=== PATIENT | female | born 1960 | race Caucasian/White ===

== ENCOUNTER 2019-09-05 08:47 | Outpatient (CLI) | payer MEDICARE, MEDICAID, SELFPAY ==
--- NOTE | 2019-09-05 08:51 | ECG_ITS ---
Measurements Intervals [place] Rate: 108 P: 132 [place]: 147 QRS: -29 QRSD: 110 T: 151 QT: 336 QTc: 451 Interpretive Statements SINUS OR ECTOPIC ATRIAL TACHYCARDIA LOW QRS VOLTAGE IN PRECORDIAL LEADS POOR R WAVE PROGRESSION, CONSIDER ANTERIOR INFARCT BORDERLINE T WAVE ABNORMALITY- INF/LAT LEADS BASELINE ARTIFACT- I, II, III, AVR, AVL, V3 ABNORMAL ECG Electronically Signed On 09-05-2019 9:48:33 FIRST [employer]OOK by David Belcher D.O.
[2019-09-05 09:22] LABS: Blood Urea Nitrogen 22 mg/dL (7-17); Calcium 9.7 mg/dL (8.4-10.2); Carbon Dioxide 29 mmol/L (22-30); Chloride 100 mmol/L (98-107); Estimated Glomerular Filt Rate > 60; Glucose 126 mg/dL (65-105); Potassium 3.6 mmol/L (3.4-5.0); Sodium 139 mmol/L (137-145)
[2019-09-05 09:40] LABS: Valproic Acid 34.7 ug/mL (50-120)
== END 2019-09-05 08:48 | disposition home or self-care (01) ==
LOC: ANHSURGERY 08:51
PROVIDERS: Anesthesiology; PCP Family Medicine; Visit Provider Orthopaedic Surgery
DX: E11.9 Type 2 diabetes mellitus without complications (principal); Z79.899 Other long term (current) drug therapy; R94.31 Abnormal electrocardiogram [ECG] [EKG]
CPT/HCPCS: 36415; 80048; 80164; 93005

== ENCOUNTER 2019-09-14 00:12 | Day surgery (SDC) | payer MEDICARE, MEDICAID, SELFPAY ==
[2019-09-01 10:19] VITALS: BMI 30.1
--- NOTE | 2019-09-08 08:21 | PM.IMHP ---
H&P: HPI History of Present Illness Chief complaint: Medial and Lateral Meniscus Tear Narrative: Knee Pain Patient was seen for left knee MRI review Involved knee: left Onset: gradual Location of pain: posterior Timing of pain: intermittent Exacerbated by: weight bearing, squatting, stairs, prolonged activity and walking up stairs Relieved by: elevation, rest and NSAIDs Associated symptoms: Reports instability and stiffness History of occupational/recreational activity with repetitive motion: No History of prior knee injury: No Chief Complaint Chief Complaint: see Reason for Visit (See HPI) Duration: weeks Severity: moderate Associated signs and symptoms: symptoms reported: (Instability, ) Exacerbating/relieving factors: relieving factors: (Elevation, Rest, ICE ) Review of Systems Review of Systems: All systems reviewed & are unremarkable except as noted in HPI and below Constitutional: Constitutional: Denies headache(s) and Denies weakness Eyes: Eyes: Denies blurry vision, Denies change in vision and Denies loss of vision ENT: Denies dizziness, Denies dry mouth, Denies headache(s) and Denies nasal congestion Cardiovascular: Cardiovascular: Denies chest pain, Denies syncope, Denies leg edema and Denies dyspnea on exertion Respiratory: Respiratory: Denies cough and Denies dyspnea on exertion Gastrointestinal: Gastrointestinal: Denies abdominal pain, Denies constipation and Denies diarrhea Genitourinary: Genitourinary: Denies urinary frequency Musculoskeletal: Musculoskeletal: Reports as per HPI and Denies numbness Integumentary/Breasts: Skin/Breast: Reports system reviewed and no additional complaints, except as docu Neurologic: Denies dizziness, Denies syncope, Denies headache(s), Denies loss of vision, Denies numbness and Denies weakness Psychiatric: Psychiatric: Reports no additional psychiatric complaints Endocrine: Endocrine: Reports no additional endocrine complaints Hematologic/Lymphatic: Hematologic/Lymphatic: Reports no additional hematologic/lymphatic complaints [facility] Past Medical History Medical History Cervical disc disease Chronic pain of left thumb Chronic thumb pain COPD (chronic obstructive pulmonary disease) Degenerative disc disease, lumbar Fibromyalgia Hyperlipidemia Hypertension Left shoulder pain Osteoporosis Restless leg syndrome Type 2 diabetes mellitus without complications Surgical History Surgical History History of carpal tunnel release RT-2011 LT-1989 History of partial hysterectomy (~1985) placenta previa History of shoulder surgery (~2007) Right shoulder bone spurs History of tubal ligation (~1984) Family History Family History Grandparent Hypertension Family history of Parkinson's disease Mother Hypertension Other Family history of arthritis Social History Social History Smoking status: Former smoker Alcohol intake: never Meds Home Medications and Allergies Home Medications Medication Instructions Recorded Confirmed Type aspirin 81 mg tablet,delayed 81 mg PO DAILY #30 tablet 05/19/19 09/01/19 Rx release budesonide-formoterol HFA 160 2 puff INHALATION BID #6 gm 05/19/19 09/01/19 Rx mcg-4.5 mcg/actuation aerosol inhaler dicyclomine 10 mg capsule 10 mg PO QID #100 cap 05/19/19 09/01/19 Rx divalproex 250 mg tablet,delayed 1,000 mg PO Q12H #120 tablet 05/19/19 09/01/19 Rx release esomeprazole magnesium 20 mg 20 mg PO DAILY #30 cap 05/19/19 09/01/19 Rx capsule,delayed release lisinopril 5 mg tablet 5 mg PO DAILY #90 tablet 05/19/19 09/01/19 Rx metformin 500 mg tablet 500 mg PO BID #180 tablet 05/19/19 09/01/19 Rx rosuvastatin 10 mg tablet 10 mg PO DAILY #90 tablet 05/19/19 09/01/19 Rx sertraline 100 mg tablet
[2019-09-14] VITALS (8 sets, daily range): BP systolic 104–122; BP diastolic 77–89; PULSE 84–97; RESP 10–20; TEMP 36.8–37.2; O2SAT 94–99
--- NOTE | 2019-09-14 11:29 | WPDHPUPDATE1 ---
History and Physical Update Update Date/Time: 09/14/19 11:29 History and Physical has been reviewed, including an updated exam of the patient. There are NO changes in the patient's condition. Risks, benefits, and alternatives have been discussed and questions answered. Patient agrees to proceed with procedure.
[2019-09-14] MEDS: CELECOXIB 200 MG CAPSULE PO (12:00)
[2019-09-14] MEDS: LACTATED RINGERS 1,000 ML 30 ML IV CONT (12:10)
[2019-09-14 12:16] LABS: Glucose Point of Care 90 (65-105)
--- NOTE | 2019-09-14 13:11 | WPDANESEPPF ---
Anes - Initial Pre Proc Eval Procedure: Operation Date: 09/14/19 13:30 Proposed Procedures p Left Knee Arthroscopy, Proceed As Indicated - Devon Marshall MD Date/Time: 09/14/19 13:11 Surgeon: Devon Marshall MD Pre Op Diagnosis: Medial and Lateral Meniscus Tear Patient Data Age: 59 Gender: F Height: 1.73 m Weight: 95.6 kg Last Vital Signs Temp 37.2 C 09/14/19 12:22 Pulse 97 09/14/19 12:22 Resp 20 09/14/19 12:22 BP 104/78 09/14/19 12:22 Pulse Ox 99 09/14/19 12:22 Allergies Allergy/AdvReac Type Severity Reaction Status Date / Time No Known Allergies Allergy Unverified 09/14/19 12:20 Home Medications Medication Instructions Recorded Confirmed Type aspirin 81 mg tablet,delayed 81 mg PO DAILY #30 tablet 05/19/19 09/14/19 Rx release budesonide-formoterol HFA 160 2 puff INHALATION BID #6 gm 05/19/19 09/14/19 Rx mcg-4.5 mcg/actuation aerosol inhaler dicyclomine 10 mg capsule 10 mg PO QID #100 cap 05/19/19 09/14/19 Rx divalproex 250 mg tablet,delayed 1,000 mg PO Q12H #120 tablet 05/19/19 09/14/19 Rx release esomeprazole magnesium 20 mg 20 mg PO DAILY #30 cap 05/19/19 09/14/19 Rx capsule,delayed release lisinopril 5 mg tablet 5 mg PO DAILY #90 tablet 05/19/19 09/14/19 Rx metformin 500 mg tablet 500 mg PO BID #180 tablet 05/19/19 09/14/19 Rx rosuvastatin 10 mg tablet 10 mg PO DAILY #90 tablet 05/19/19 09/14/19 Rx sertraline 100 mg tablet 100 mg PO DAILY #30 tablet 05/19/19 09/14/19 Rx diclofenac sodium 75 mg 75 mg PO BID #60 tablet 05/23/19 09/14/19 Rx tablet,delayed release lancets 33 gauge #100 each 05/27/19 Rx lancets 33 gauge #100 each 06/14/19 Rx blood sugar diagnostic #100 each 06/17/19 Rx blood sugar diagnostic #50 each 06/17/19 Rx blood-glucose meter #1 each 06/17/19 Rx chlorhexidine gluconate 4 % 1 applic TOPICAL ONCE #236 ml 07/26/19 09/14/19 Rx topical liquid albuterol sulfate [Ventolin HFA] 2 inhalation INHALATION Q4H PRN 09/01/19 09/14/19 History apple cider vinegar 1 cap PO TID 09/01/19 09/14/19 History cyclobenzaprine 5 - 10 mg PO TID 09/01/19 09/14/19 History gabapentin 600 mg PO TID 09/01/19 09/14/19 History melatonin 5 mg PO HS 09/01/19 09/14/19 History multivitamin 1 tablet PO DAILY 09/01/19 09/14/19 History hydrochlorothiazide 25 mg tablet 25 mg PO DAILY #90 tablet 09/12/19 09/14/19 Rx Laboratory Tests 09/14/19 12:14 POC Capillary Glucose 90 mg/dl mg/dl (65-105) Patient hx anesthesia problems: none Family hx anesthesia problems: none PMFSH Past Medical History Medical History Cervical disc disease Chronic pain of left thumb Chronic thumb pain COPD (chronic obstructive pulmonary disease) Degenerative disc disease, lumbar Fibromyalgia Hyperlipidemia Hypertension Left shoulder pain Osteoporosis Restless leg syndrome Type 2 diabetes mellitus without complications Surgical History Surgical History History of carpal tunnel release RT-2011 LT-1989 History of partial hysterectomy (~1985) placenta previa History of shoulder surgery (~2007) Right shoulder bone spurs History of tubal ligation (~1984) Family History Family History Grandparent Hypertension Family history of Parkinson's disease Mother Hypertension Other Family history of arthritis Social History Social History Smoking status: Former smoker Alcohol intake: never Anes - Eval Final PreProcedure Day of Procedure 09/14/19 13:11 Patient weight: obese Heart: regular rate and rhythm Lungs: clear to auscultation and normal air movement Airway: Mallampati scale class II Neurological: alert and oriented Last oral intake: >/= 8 hours ASA classification: III Emergent: no Anesthetic plan: proceed Anesthesia type and mon
[2019-09-14] MEDS: ceFAZolin 2 GM/D5W 50 ML 2 GM/50 ML BAG IVPB (13:57)
--- NOTE | 2019-09-14 14:51 | PM.OP ---
Procedure Note - Brief Procedure Note - Brief Date of procedure: 09/14/19 Pre-op diagnosis: Medial and Lateral Meniscus Tear Post-op diagnosis: same Procedure performed: LEFT KNEE SCOPE Anesthesia: GETA Surgeon: Devon Marshall MD Estimated blood loss (mL): 5 Complications: No immediate complications Condition: stable Disposition: PACU
[2019-09-14 15:18] LABS: Glucose Point of Care 106 (65-105)
--- NOTE | 2019-09-14 19:56 | OP_ITS ---
DATE OF PROCEDURE: 09/14/2019 PREOPERATIVE DIAGNOSIS: Left knee medial meniscus tear and lateral meniscus tear. POSTOPERATIVE DIAGNOSIS: Left knee medial meniscus tear and lateral meniscus tear. PROCEDURE: Left knee arthroscopy with partial medial meniscectomy, partial lateral meniscectomy and minor synovectomy. ANESTHESIA: General. COMPLICATIONS: None. INDICATIONS: This is a 59-year-old female, who came in the office complaining of knee pain. Eventually, she was diagnosed with a medial and lateral meniscus tear. She was indicated for left knee arthroscopy. DESCRIPTION OF PROCEDURE: The patient was taken to the operating room in stable condition and placed in the supine position and general anesthesia was induced, and then the left lower extremity was prepped and draped sterilely from the toes to the thigh. Superomedial portal was used for the outflow cannula. Inferolateral portal was used for the camera. The camera was introduced. There was an area of chondromalacia grade 2 on the patella. There was a lot of synovitis in Hoffa synovium. The medial compartment was entered. There was a small tear of the medial meniscus on the main body of the posterior horn. A medial portal was established. A biter and shaver were introduced at separate times and the medial meniscus tear was resected to a smooth base. Next, minimal chondromalacia underwent chondroplasty on the surface of the medial femoral condyle. Next, the ACL was identified and it was intact. Next, the lateral compartment was entered. There was a tear in the root of the meniscus on the most posterior part of the groove and there was a main body tear. Both of those tears were resected with a biter and a shaver and they were contoured and smooth. There was no significant chondromalacia in the lateral compartment. Next, the patellofemoral joint was entered. Chondroplasty was performed of the patella, and then synovectomy was performed in Hoffa synovium until there was no more impingement in deep flexion. The patella was tracking well without any tilt. The instruments were removed after thorough irrigation of the knee joint. The wounds were washed and approximated with 4-0 nylon suture. Sterile dressing was applied. The patient was extubated and sent to recovery. Kathryn I MT: Saul
== END 2019-09-14 17:00 | disposition home or self-care (01) ==
PROVIDERS: PCP Family Medicine; Visit Provider Orthopaedic Surgery
PROC: (CPT 29870; principal; 2019-09-14 13:30)
DX: M23.322 Other meniscus derangements, posterior horn of medial meniscus, left knee (principal); M23.362 Other meniscus derangements, other lateral meniscus, left knee; I10 Essential (primary) hypertension; E11.9 Type 2 diabetes mellitus without complications; E78.5 Hyperlipidemia, unspecified; J44.9 Chronic obstructive pulmonary disease, unspecified; M79.7 Fibromyalgia; M81.0 Age-related osteoporosis without current pathological fracture; G25.81 Restless legs syndrome; Z79.84 Long term (current) use of oral hypoglycemic drugs; Z79.82 Long term (current) use of aspirin; E66.9 Obesity, unspecified; Z68.32 Body mass index [BMI] 32.0-32.9, adult
CPT/HCPCS: 29880; 97116; 97161; A9270; J0131; J0690; J1100; J2250; J2405; J2704; J3010; J7120

== ENCOUNTER 2019-09-21 11:30 | Emergency (ER) | payer MEDICARE, MEDICAID, SELFPAY ==
--- NOTE | ~2019-09-21 | CT_ITS ---
EXAMINATION: CT abdomen pelvis wo con EXAM DATE: 09/21/2019 13:00 INDICATION: Hematuria. TECHNIQUE: Spiral CT of the abdomen and pelvis was performed without contrast. Axial, coronal and sag ittal images were reviewed. The dose-length product (DLP) for this examination was 437.24 mGy-cm. T he exposure was tailored according to patient size (auto mA exposure control), and iterative reconstr uction (ASIR) was used as additional dose reduction technique. Comparison is made to prior examinatio n from 07/27/2018. FINDINGS: There is 2 x 4 mm left inferior calyceal stone, punctate right nephrolithiasis. No hydronep hrosis. The uterus is not identified and has likely been surgically resected. The bladder is unrema rkable. The liver, spleen, adrenal glands and pancreas are unremarkable. Gallbladder is unremarkabl e. No biliary obstruction. There is no retroperitoneal or pelvic lymphadenopathy. There is mild s cattered arteriosclerotic disease. The appendix is normal. The stomach and small bowel are unremarkable. There is moderate amount of c olonic stool. No free intraperitoneal gas. The heart is normal in size. There are no pericardial or pleural effusions. The lung bases are unremarkable. There are no osteoblastic or osteolytic les ions identified. IMPRESSION: 1. Small bilateral nephrolithiasis. Reviewed, dictated and finalized at location B.
[2019-09-21 11:41] VITALS: BP 131/79; PULSE 108; RESP 17; TEMP 36.5; O2SAT 99
[2019-09-21 12:06] LABS: Add Urine Microscopic? YES; Appearance Urine Cloudy (Clear); Bacteria Urine Trace /hpf; Bilirubin Urine Negative (Negative); Blood Urine 3+ (Negative); Color Urine Yellow (Yellow); Glucose Urine UA Negative (Negative); Ketones Urine Negative (Negative); Leukocyte Esterase Ur 3+ LEU/UL (Negative); Mucus Urine Rare /lpf; Nitrate Urine Negative (Negative); Protein Urine 2+ mg/dL (Negative); RBC Urine >75 /hpf (0-2); Specific Grav Ur 1.019 (1.001-1.035); Squamous Epithelial Cell Urine Occasional /hpf (Few); WBC Urine >75 /hpf
--- NOTE | 2019-09-21 12:26 | ED.FEMALEGU ---
HPI - Female Genitourinary General Chief complaint: Urogenital-Female Stated complaint: Blood in urine Time Seen by Provider: 09/21/19 11:55 Source: patient Mode of arrival: ambulatory Limitations: no limitations History of Present Illness HPI Narrative: Pt is a 59 y/o male who presents to the ED with c/o hematuria that started this morning. She reports associated dysuria, DENISE flank pain, and nausea. She has a H/O kidney stones and states that her Sx feel similar to her last kidney stone. Pt denies vomiting, diarrhea, constipation, fever, or chills. She denies any foreign travel. MD elicited complaint: dysuria and other (hematuria) Pertinent past history: other (kidney stones) Onset (ago): day(s) (this morning) Consistency: constant Urinary symptoms: Dysuria and Hematuria Associated symptoms: other (DENISE flank pain) Related Data Home Medications Medication Instructions Recorded Confirmed albuterol sulfate [Ventolin HFA] 2 inhalation INHALATION Q4H PRN 09/01/19 09/14/19 apple cider vinegar 1 cap PO TID 09/01/19 09/14/19 cyclobenzaprine 5 - 10 mg PO TID 09/01/19 09/14/19 gabapentin 600 mg PO TID 09/01/19 09/14/19 melatonin 5 mg PO HS 09/01/19 09/14/19 multivitamin 1 tablet PO DAILY 09/01/19 09/14/19 Allergies Allergy/AdvReac Type Severity Reaction Status Date / Time No Known Allergies Allergy Verified 09/21/19 11:45 Review of Systems Review of Systems: All systems reviewed & are unremarkable except as noted in HPI and below Constitutional: Constitutional: Denies chills and Denies fever(s) Gastrointestinal: Gastrointestinal: Denies constipation, Denies diarrhea, Reports nausea and Denies vomiting Genitourinary: Genitourinary: Reports hematuria, Reports dysuria and Reports flank pain (DENISE) [facility] Past Medical History Medical History (Updated 09/21/19 @ 13:08 by Carlo Grimes MD) Cervical disc disease Chronic pain of left thumb Chronic thumb pain COPD (chronic obstructive pulmonary disease) Degenerative disc disease, lumbar Fibromyalgia Hyperlipidemia Hypertension Kidney stones Left shoulder pain Osteoporosis Restless leg syndrome Type 2 diabetes mellitus without complications Surgical History Surgical History History of carpal tunnel release RT-2011 LT-1989 History of partial hysterectomy (~1985) placenta previa History of shoulder surgery (~2007) Right shoulder bone spurs History of tubal ligation (~1984) Social History Social History Smoking status: Former smoker Alcohol intake: never Gender identity (if verbalized by the patient): Female Exam Narrative: Exam Narrative: General appearance: Well-developed, well-nourished Skin: Normal color Head: Normocephalic, nontraumatic Eyes: Clear conjunctiva ENT: Oropharynx normal, ears normal, nose normal Neck: Supple, nontender Chest and respiratory: Airway patent, no respiratory distress, no accessory muscle use Heart: Regular rate/rhythm Abdomen: Soft, nontender, no organomegaly, quiet bowel sounds Vascular: Normal peripheral pulses, normal capillary refill. Musculoskeletal: Normal range of motion, diffuse tenderness across the lower back bilaterally. No bruises or swelling Neurologic: Alert and oriented ?3, [employer] is normal as tested, no gross motor deficit Course Course Emergency Course: Stable Vital Signs Vital signs: Vital Signs Temperature 36.5 C 09/21/19 11:41 Pulse Rate 108 H 09/21/19 11:41 Respiratory Rate 17 09/21/19 11:41 Blood Pressure 131/79 09/21/19 11:41 Pulse Oximetry 99 09/21/19 11:41 Temperature 36.5 C 09/21/19 11:41
[2019-09-21 13:26] VITALS: BP 109/85; PULSE 114; RESP 17; O2SAT 100
== END 2019-09-21 13:28 | disposition home or self-care (01) ==
PROVIDERS: Emergency Medicine; Emergency Provider Emergency Medicine; PCP Family Medicine
DX: N30.01 Acute cystitis with hematuria (principal); J44.9 Chronic obstructive pulmonary disease, unspecified; M79.7 Fibromyalgia; E78.5 Hyperlipidemia, unspecified; I10 Essential (primary) hypertension; Z87.442 Personal history of urinary calculi; E11.9 Type 2 diabetes mellitus without complications; G25.81 Restless legs syndrome
CPT/HCPCS: 74176; 81001; 87077; 87086; 87088; 87186; 99284

== ENCOUNTER 2020-02-12 09:24 | Outpatient (CLI) | payer MEDICARE, MEDICAID, SELFPAY ==
--- NOTE | ~2020-02-12 | MR_ITS ---
EXAMINATION: MR knee RT wo con DATE: 02/12/2020 10:15 INDICATION: Right knee pain TECHNIQUE: Magnetic resonance imaging (MRI) of the right knee was performed without intravenous contr ast. Sequences included coronal PD-weighted FSE, coronal PD-weighted FS FSE, sagittal T2-weighted FS E, sagittal PD-weighted FS FSE and axial PD weighted fat saturated FSE. COMPARISON: None. FINDINGS: Medial compartment: Medial meniscus is normal. Articular cartilage is normal. Lateral compartment: Complex tear at the posterior horn of the lateral meniscus which appears to spare the portion of the meniscus contiguous with the meniscal femoral ligament of Eduardo. A longitudinal horizontal tear pl ane extending from near the free edge to the periphery of the more anterior body and anterior horn of the lateral meniscus. Minimal subarticular edema underlying a region of deep chondral fissuring alfredito g the posterior third of the lateral tibial plateau. Cartilage along the weightbearing lateral femora l condyle appears relatively preserved. Patellofemoral compartment: Deep chondral fissuring without degenerative subchondral changes at the medial patellar facet and med ial side of the lateral facet. Additional small region of chondral ulceration and deep fissuring with out degenerative subchondral changes along the inferior aspect of the medial trochlea. Ligaments and tendons: Anterior and posterior cruciate ligaments are normal. The medial collateral ligament and fibular niko ateral ligament complex are normal. The extensor mechanism is normal. The visualized medial and later al hamstring tendons as well as the iliotibial band are normal. Fluid: Small right knee joint effusion at the suprapatellar pouch. No loose osteochondral bodies identified. Moderate-sized Pang's cyst. Osseous/other: Normal marrow signal. No fracture or pathologic marrow replacing process. IMPRESSION: 1. Complex lateral meniscal tear. 2. Mild osteoarthritis with small regions of moderate and high-grade grade chondromalacia in the garrison llofemoral and lateral compartments respectively. 3. Moderate-sized Pang's cyst. Reviewed, dictated and finalized at location A. IMPRESSION: 1. Complex lateral meniscal tear. 2. Mild osteoarthritis with small regions of moderate and high-grade grade spencer dromalacia in the patellofemoral and lateral compartments respectively. 3. Moderate-sized Pang's cyst.
== END 2020-02-12 09:25 | disposition home or self-care (01) ==
LOC: ANHIMG 09:26
PROVIDERS: PCP Family Medicine; Visit Provider Orthopaedic Surgery
DX: M71.21 Synovial cyst of popliteal space [Baker], right knee (principal); S83.271A Complex tear of lateral meniscus, current injury, right knee, initial encounter; X58.XXXA Exposure to other specified factors, initial encounter; M17.11 Unilateral primary osteoarthritis, right knee
CPT/HCPCS: 73721

== ENCOUNTER 2020-02-24 12:34 | Outpatient (CLI) | payer MEDICARE, MEDICAID, SELFPAY ==
[2020-02-24 12:58] LABS: Anion Gap 6 mmol/L (8-16); Blood Urea Nitrogen 17 mg/dL (7-17); Calcium 9.1 mg/dL (8.4-10.2); Carbon Dioxide 28 mmol/L (22-30); Chloride 105 mmol/L (98-107); Estimated Glomerular Filt Rate > 60; Glucose 90 mg/dL (65-105); Potassium 3.8 mmol/L (3.4-5.0); Sodium 139 mmol/L (137-145)
[2020-02-24 13:33] LABS: Valproic Acid 24.6 ug/mL (50-120)
== END 2020-02-24 12:35 | disposition home or self-care (01) ==
PROVIDERS: Anesthesiology; PCP Family Medicine; Visit Provider Orthopaedic Surgery
DX: Z01.818 Encounter for other preprocedural examination (principal); E11.9 Type 2 diabetes mellitus without complications; Z79.899 Other long term (current) drug therapy
CPT/HCPCS: 36415; 80048; 80164

== ENCOUNTER 2020-03-03 00:41 | Outpatient (CLI) | payer MEDICARE, MEDICAID, SELFPAY ==
[2020-03-03 19:29] LABS: SARS-CoV-2 RNA PCR Negative
== END 2020-03-03 00:42 | disposition home or self-care (01) ==
LOC: ANHCOVIDDT 00:42
PROVIDERS: PCP Family Medicine; Visit Provider Orthopaedic Surgery
DX: Z01.812 Encounter for preprocedural laboratory examination (principal); Z20.828 Contact with and (suspected) exposure to other viral communicable diseases
CPT/HCPCS: 87635; C9803; U0003

== ENCOUNTER 2020-04-07 01:13 | Outpatient (CLI) | payer MEDICARE, MEDICAID, SELFPAY ==
[2020-04-07 14:01] LABS: SARS-CoV-2 RNA PCR Negative
== END 2020-04-07 01:14 | disposition home or self-care (01) ==
LOC: ANHCOVIDDT 01:13
PROVIDERS: PCP Family Medicine; Visit Provider Orthopaedic Surgery
DX: Z01.812 Encounter for preprocedural laboratory examination (principal); Z20.828 Contact with and (suspected) exposure to other viral communicable diseases
CPT/HCPCS: 87635; C9803; U0003

== ENCOUNTER 2020-04-10 01:40 | Day surgery (SDC) | payer MEDICARE, MEDICAID, SELFPAY ==
[2020-02-21 09:00] VITALS: BMI 28.5
--- NOTE | 2020-03-05 08:45 | WPDANESEPPF ---
Anes - Initial Pre Proc Eval Procedure: Operation Date: 03/06/20 13:30 Proposed Procedures p Right Knee Arthroscopy - Devon Marshall MD Date/Time: 03/05/20 08:45 Surgeon: Devon Marshall MD Pre Op Diagnosis: Right Knee Lateral Meniscus Tear Patient Data Age: 59 Gender: F Height: 1.73 m Weight: 85.28 kg Allergies Allergy/AdvReac Type Severity Reaction Status Date / Time No Known Allergies Allergy Verified 02/21/20 09:01 Home Medications Medication Instructions Recorded Confirmed Type budesonide-formoterol HFA 160 2 puff INHALATION BID #6 gm 05/19/19 02/21/20 Rx mcg-4.5 mcg/actuation aerosol inhaler esomeprazole magnesium 20 mg 20 mg PO DAILY #30 cap 05/19/19 02/21/20 Rx capsule,delayed release lancets 33 gauge #100 each 06/14/19 02/16/20 Rx blood sugar diagnostic #50 each 06/17/19 02/16/20 Rx blood-glucose meter #1 each 06/17/19 02/16/20 Rx apple cider vinegar 1 cap PO TID 09/01/19 02/21/20 History melatonin 5 mg PO HS 09/01/19 02/21/20 History multivitamin 1 tablet PO DAILY 09/01/19 02/21/20 History diclofenac sodium 75 mg 75 mg PO BID PRN #60 tablet 11/16/19 02/21/20 Rx tablet,delayed release sertraline 100 mg tablet 100 mg PO DAILY #30 tablet 12/21/19 02/21/20 Rx blood sugar diagnostic #100 each 02/02/20 02/16/20 Rx divalproex 250 mg tablet,delayed 500 mg PO Q12H #120 tablet 02/02/20 02/21/20 Rx release metformin 500 mg tablet 500 mg PO BID #180 tablet 02/02/20 02/21/20 Rx rosuvastatin 10 mg tablet 10 mg PO DAILY #90 tablet 02/02/20 02/21/20 Rx albuterol sulfate 90 mcg/actuation 2 inhalation INHALATION Q4H PRN 02/06/20 02/21/20 Rx aerosol inhaler #8.5 gm cyclobenzaprine 10 mg tablet 5 - 10 mg PO TID #90 tablet 02/20/20 02/21/20 Rx Linzess 1 tablet PO DAILY 02/21/20 02/21/20 History chlorhexidine gluconate 4 % 1 applic TOPICAL ONCE #237 ml 02/21/20 Rx topical liquid dicyclomine 10 mg PO TID 02/21/20 02/21/20 History hydrochlorothiazide 25 mg PO DAILY 02/21/20 02/21/20 History lisinopril 5 mg PO DAILY 02/21/20 02/21/20 History gabapentin 300 mg capsule 600 mg PO TID #270 cap 03/20/20 Rx Patient hx anesthesia problems: none Family hx anesthesia problems: none PMFSH Social History Social History Smoking packs per day: 2 Smoking cigarettes per day: 40.0 Years smoked: 35 Smoking pack-years: 70.00 Smoking status: Current every day smoker Additional smoking assessment comments: NOW SMOKING 0.5PPD- HAD QUIT IN 07/2018 AND STARTED AGAIN AT 0.5PPD Alcohol intake: never Substance use: current Substance use type: marijuana Other substance usage details: MEDICAL MARIJUANA Gender identity (if verbalized by the patient): Female Spiritual care concerns: No Anes - Eval Final PreProcedure Day of Procedure 03/05/20 08:45 Patient weight: overweight Heart: regular rate and rhythm Lungs: clear to auscultation and normal air movement Airway: Mallampati scale class II Neurological: alert and oriented Last oral intake: >/= 8 hours ASA classification: III Emergent: no Anesthetic plan: proceed Anesthesia type and monitoring: general LMA and standard monitoring Informed Consent: The patient's anesthetic plan and its attendant risks and benefits were discussed with the patient/family/POA. Questions were solicited and answers provided to the satisfaction of the patient/family/POA.
--- NOTE | 2020-03-06 07:24 | WPDHPUPDATE1 ---
History and Physical Update Update Date/Time: 03/06/20 07:24 History and Physical has been reviewed, including an updated exam of the patient. There are NO changes in the patient's condition. Risks, benefits, and alternatives have been discussed and questions answered. Patient agrees to proceed with procedure.
--- NOTE | 2020-03-06 12:06 | SUR.PREOP ---
1145: CALLED PT. SHE WAS SUPPOSED TO ARRIVE AT 1130. SHE IS AT HOME. DID NOT REALIZE TODAY WAS SURGERY. SHE HAD A MUFFIN AND COFFEE AND SIPS OF PEPSI AT 0800. SPOKE TO DR JIN. AND DR BURNHAM. SURGERY CANCELLED. TO BE RESCHEDULED. PT AWARE.
[2020-03-28 14:00] VITALS: BMI 28.5
--- NOTE | 2020-04-05 08:44 | PM.IMHP ---
H&P: HPI History of Present Illness Chief complaint: Right Knee Lateral Meniscus Tear Narrative: Knee Pain Pt presents with Right knee pain. She states she was working in her yard in approx October 2019 and heard a pop . MRI done 02/12/20. Hx LT knee arthroscopy (09/14/19) Involved knee: right Onset: gradual Location of pain: medial, lateral, anterior, inferior and distal Character: stabbing and dull ache Timing of pain: intermittent Exacerbated by: kneeling, squatting and stairs Relieved by: ice and rest Associated symptoms: Reports popping, giving way and stiffness History of occupational/recreational activity with repetitive motion: No History of prior knee injury: No Review of Systems Review of Systems: All systems reviewed & are unremarkable except as noted in HPI and below Constitutional: Constitutional: Denies headache(s) and Denies weakness Eyes: Eyes: Denies blurry vision, Denies change in vision and Denies loss of vision ENT: Denies dizziness, Denies dry mouth, Denies headache(s) and Denies nasal congestion Cardiovascular: Cardiovascular: Denies chest pain, Denies syncope, Denies leg edema and Denies dyspnea on exertion Respiratory: Respiratory: Denies cough and Denies dyspnea on exertion Gastrointestinal: Gastrointestinal: Denies abdominal pain, Denies constipation and Denies diarrhea Genitourinary: Genitourinary: Denies urinary frequency Musculoskeletal: Musculoskeletal: Reports as per HPI and Denies numbness Integumentary/Breasts: Skin/Breast: Reports system reviewed and no additional complaints, except as docu Neurologic: Denies dizziness, Denies syncope, Denies headache(s), Denies loss of vision, Denies numbness and Denies weakness Psychiatric: Psychiatric: Reports no additional psychiatric complaints Endocrine: Endocrine: Reports no additional endocrine complaints Hematologic/Lymphatic: Hematologic/Lymphatic: Reports no additional hematologic/lymphatic complaints [facility] Social History Social History Smoking packs per day: 2 Smoking cigarettes per day: 40.0 Years smoked: 35 Smoking pack-years: 70.00 Smoking status: Current every day smoker Additional smoking assessment comments: NOW SMOKING 0.5PPD- HAD QUIT IN 07/2018 AND STARTED AGAIN AT 0.5PPD Alcohol intake: never Substance use: current Substance use type: marijuana Other substance usage details: MED[employer] MARIJUANA Gender identity (if verbalized by the patient): Female Spiritual care concerns: No Meds Home Medications and Allergies Home Medications Medication Instructions Recorded Confirmed Type budesonide-formoterol HFA 160 2 puff INHALATION BID #6 gm 05/19/19 03/28/20 Rx mcg-4.5 mcg/actuation aerosol inhaler esomeprazole magnesium 20 mg 20 mg PO DAILY #30 cap 05/19/19 03/28/20 Rx capsule,delayed release lancets 33 gauge #100 each 06/14/19 03/28/20 Rx blood sugar diagnostic #50 each 06/17/19 03/28/20 Rx blood-glucose meter #1 each 06/17/19 03/28/20 Rx apple cider vinegar 1 cap PO TID 09/01/19 03/28/20 History melatonin 5 mg PO HS 09/01/19 03/28/20 History multivitamin 1 tablet PO DAILY 09/01/19 03/28/20 History diclofenac sodium 75 mg 75 mg PO BID PRN #60 tablet 11/16/19 03/28/20 Rx tablet,delayed release sertraline 100 mg tablet 100 mg PO DAILY #30 tablet 12/21/19 03/28/20 Rx blood sugar diagnostic #100 each 02/02/20 03/28/20 Rx divalproex 250 mg tablet,delayed 500 mg PO Q12H #120 tablet 02/02/20 03/28/20 Rx release metformin 500 mg tablet 500 mg PO BID #180 tablet 02/02/20 03/28/20 Rx rosuvastatin 10 mg tablet 10 mg PO DAILY #90 tablet 02/02/20 03/28/20 Rx albuterol sulfate 90 mcg/actuation 2 inhalation INHALATION Q4H PRN 02/06/20 03/28/20 Rx aerosol inhaler #8.5 gm cyclobenzaprine 10 mg tablet 5 - 10 mg PO TID #90 tablet 02/20/20 03/28/20 Rx Linzess 1 tablet PO DAILY 02/21/20 03/28/20 History chlorhexidine gluconate 4 % 1 applic TOPICAL ONCE #237
[2020-04-10] VITALS (9 sets, daily range): BP systolic 100–136; BP diastolic 70–91; PULSE 83–103; RESP 6–16; TEMP 36.4–36.6; O2SAT 94–100
--- NOTE | 2020-04-10 07:28 | WPDHPUPDATE1 ---
History and Physical Update Update Date/Time: 04/10/20 07:28 History and Physical has been reviewed, including an updated exam of the patient. There are NO changes in the patient's condition. Risks, benefits, and alternatives have been discussed and questions answered. Patient agrees to proceed with procedure.
[2020-04-10] MEDS: ACETAMINOPHEN 500 MG TABLET 1000 MG PO (08:51)
[2020-04-10] MEDS: CELECOXIB 200 MG CAPSULE PO (08:51)
[2020-04-10 08:52] LABS: Glucose Point of Care 98 (65-105)
[2020-04-10] MEDS: LACTATED RINGERS 1,000 ML 30 ML IV CONT ×2 (08:52→10:31)
--- NOTE | 2020-04-10 09:05 | WPDANESEPPF ---
Anes - Initial Pre Proc Eval Procedure: Operation Date: 04/10/20 10:00 Proposed Procedures p Right Knee Arthroscopy - Devon Marshall MD Date/Time: 04/10/20 09:05 Surgeon: Devon Marshall MD Pre Op Diagnosis: Right Knee Lateral Meniscus Tear Patient Data Age: 59 Gender: F Height: 5 ft 8 in Weight: 84.9 kg Last Vital Signs Temp 36.4 C L 04/10/20 08:16 Pulse 103 H 04/10/20 08:16 Resp 16 04/10/20 08:16 BP 136/91 H 04/10/20 08:16 Pulse Ox 98 04/10/20 08:16 Allergies Allergy/AdvReac Type Severity Reaction Status Date / Time No Known Allergies Allergy Verified 04/10/20 08:16 Home Medications Medication Instructions Recorded Confirmed Type budesonide-formoterol HFA 160 2 puff INHALATION BID #6 gm 05/19/19 03/28/20 Rx mcg-4.5 mcg/actuation aerosol inhaler esomeprazole magnesium 20 mg 20 mg PO DAILY #30 cap 05/19/19 03/28/20 Rx capsule,delayed release lancets 33 gauge #100 each 06/14/19 03/28/20 Rx blood sugar diagnostic #50 each 06/17/19 03/28/20 Rx blood-glucose meter #1 each 06/17/19 03/28/20 Rx apple cider vinegar 1 cap PO TID 09/01/19 03/28/20 History melatonin 5 mg PO HS 09/01/19 03/28/20 History multivitamin 1 tablet PO DAILY 09/01/19 03/28/20 History diclofenac sodium 75 mg 75 mg PO BID PRN #60 tablet 11/16/19 03/28/20 Rx tablet,delayed release sertraline 100 mg tablet 100 mg PO DAILY #30 tablet 12/21/19 03/28/20 Rx blood sugar diagnostic #100 each 02/02/20 03/28/20 Rx divalproex 250 mg tablet,delayed 500 mg PO Q12H #120 tablet 02/02/20 03/28/20 Rx release metformin 500 mg tablet 500 mg PO BID #180 tablet 02/02/20 03/28/20 Rx rosuvastatin 10 mg tablet 10 mg PO DAILY #90 tablet 02/02/20 03/28/20 Rx albuterol sulfate 90 mcg/actuation 2 inhalation INHALATION Q4H PRN 02/06/20 03/28/20 Rx aerosol inhaler #8.5 gm cyclobenzaprine 10 mg tablet 5 - 10 mg PO TID #90 tablet 02/20/20 03/28/20 Rx Linzess 1 tablet PO DAILY 02/21/20 03/28/20 History chlorhexidine gluconate 4 % 1 applic TOPICAL ONCE #237 ml 02/21/20 03/28/20 Rx topical liquid dicyclomine 10 mg PO TID 02/21/20 03/28/20 History hydrochlorothiazide 25 mg PO DAILY 02/21/20 03/28/20 History lisinopril 5 mg PO DAILY 02/21/20 03/28/20 History gabapentin 300 mg capsule 600 mg PO TID #270 cap 03/20/20 03/28/20 Rx Laboratory Tests 04/10/20 08:50 POC Capillary Glucose 98 mg/dl mg/dl (65-105) Patient hx anesthesia problems: none Family hx anesthesia problems: none PMFSH Past Medical History Medical History Abdominal pain Arthritis Cervical disc disease Chronic pain of left thumb Chronic thumb pain Colon polyp Constipation COPD (chronic obstructive pulmonary disease) Degenerative disc disease, lumbar Depression Fibromyalgia High cholesterol Hyperlipidemia Hypertension Irritable bowel syndrome with constipation Kidney stones Left shoulder pain Nausea Osteoporosis Restless leg syndrome Stomach pain Type 2 diabetes mellitus without complications Last A1C provided 02/02/20: 5 Weight loss Surgical History Surgical History History of carpal tunnel release RT-2011 LT-1989 History of partial hysterectomy (~1985) placenta previa History of shoulder surgery (~2007) Right shoulder bone spurs History of tubal ligation (~1984) Family History Family History Grandparent Hypertension Family history of Parkinson's disease Mother Hypertension Other Family history of arthritis Social History Social History Smoking packs per day: 2 Smoking cigarettes per day: 40.0 Years smoked: 35 Smoking pack-years: 70.00 Smoking status: Current every day smoker Additional smoking assessment comments: NOW SMOKING 0.5PPD- HAD QUIT IN 07/2018 AND STARTED AGAIN AT 0.5PPD Alcohol in
--- NOTE | 2020-04-10 09:30 | SUR.PREOP ---
Patient declining crutch training for right knee arthroscopy. Patient using walker from home post operatively. Rupal has previous experience with walker training from left knee arthroscopy. Offered for physical therapy to see patient for walker training and patient declined.
[2020-04-10] MEDS: ceFAZolin 2 GM/D5W 50 ML 2 GM/50 ML BAG IVPB (09:45)
--- NOTE | 2020-04-10 10:28 | P.OP_ITS ---
Procedure Note - Detailed Date of procedure: 04/10/20 Pre-op diagnosis: Right Knee Lateral Meniscus Tear Post-op diagnosis: same Procedure performed: RIGHT KNEE SCOPE WITH PARTIAL LATERAL MENISCECTOMY AND MAJOR SYNOVECTOMY Description of procedure: PATIENT WAS TAKEN TO THE OR. RIGHT LEG WAS PREPPED AND DRAPED STERILE. TROCARS WERE PLACED IN THE USUAL FASHION. CAMERA WAS INTRODUCED. THERE WAS MINIMAL CHONDROMALACIA TO THE PATELLA FEMORAL JOINT. THERE WAS SYNOVITIS IN THE PATELLO FEMORAL COMPARTMENT. THE MEDIAL COMPARTMENT SHOWED CHONDROMALACIA TO THE MED FEMORAL CONDYLE. A SHAVER WAS USED TO PREFORM A CHONDROPLASTY. THERE WAS NO MEDIAL MENISCUS TEAR. THE ACL WAS INTACT. THE LATERAL MENISCUS WAS TORN AT THE ROOT AND UNDERWENT RESECTION OF ABOUT 10 % THE LAT FEMORAL CONDYLE UNDERWENT CHONDROPLASTY. THE PATELLO FEMORAL JOINT UN DERWENT MINIMAL CHONDROPLASTY. SYNOVECTOMY WAS PREFORMED IN HOFFA'S SYNOVIUM. THE WOUNDS WERE APPROXIMATED WITH 4.0 NYLON. STERILE DRESSING WAS APPLIED. PATIENT WAS EXTUBATED. Anesthesia: GLMA Surgeon: Devon Marshall MD Estimated blood loss (mL): 5 Complications: No immediate complications Condition: stable Disposition: PACU
--- NOTE | 2020-04-10 10:53 | SUR.PHASEI ---
1040; ORAL AIRWAY REMOVED INTACT DUE TO NO TEETH AND PT TONGUE OBSTRUCTING. 30FR NASAL AIRWAY PLACED TO LT NARE WITHOUT DIFFICULTY. RESP EVEN UNLABORED. NO OBSTRUCTING
[2020-04-10 11:03] LABS: Glucose Point of Care 95 (65-105)
[2020-04-10] MEDS: HYDROmorphone HCL INJ (*CRX) 1 MG/ML SYR 0.5 MG IV PUSH ×4 (11:08→11:29)
--- NOTE | 2020-04-10 11:22 | SUR.PHASEI ---
PT GROGGY, RESTING QUIETLY . DOZES IN INTERVALS. WHEN AWAKE, STATES PAIN 9/10. DILAUDID GIVEN PRN
--- NOTE | 2020-04-10 11:31 | SUR.PHASEI ---
PT STATES SHE IS FEELING BETTER NOW. RELAXED.
--- NOTE | 2020-04-10 11:45 | SUR.PHASEI ---
PT STATES SHE IS READY TO SIT IN RECLINER AND HAVE PO FLUIDS.
[2020-04-10] MEDS: oxyCODONE HCL (*CRX) 5 MG TAB IR PO (12:37)
== END 2020-04-10 12:58 | disposition home or self-care (01) ==
PROVIDERS: PCP Family Medicine; Visit Provider Orthopaedic Surgery
PROC: (CPT 29870; principal; 2020-04-10 10:00)
DX: S83.281A Other tear of lateral meniscus, current injury, right knee, initial encounter (principal); F17.210 Nicotine dependence, cigarettes, uncomplicated; F12.90 Cannabis use, unspecified, uncomplicated; J44.9 Chronic obstructive pulmonary disease, unspecified; E11.9 Type 2 diabetes mellitus without complications; E78.5 Hyperlipidemia, unspecified; I10 Essential (primary) hypertension; M94.261 Chondromalacia, right knee; M65.861 Other synovitis and tenosynovitis, right lower leg
CPT/HCPCS: 29881; 29876; A9270; J0690; J1100; J1170; J2250; J2405; J2704; J3010; J7120

== ENCOUNTER 2020-06-25 13:52 | Outpatient (CLI) | payer MEDICARE, MEDICAID, SELFPAY ==
--- NOTE | ~2020-06-25 | CT_ITS ---
EXAMINATION: CT lung screening DATE: 06/25/2020 14:16 INDICATION: Personal history of nicotine dependence TECHNIQUE: Computed tomography (CT) of the chest was performed without intravenous contrast. The dose -length product was 165.73 mGy-cm. Automated exposure control and iterative reconstruction technique were employed. COMPARISON: CT dated 04/06/2018 FINDINGS: No thoracic lymphadenopathy. Heart size normal. No significant pleural or pericardial effus ion. Moderate emphysema. No thoracic lymphadenopathy. There are small upper lobe nodules measuring 2 mm or less no pneumothorax. No endobronchial lesions. Right middle lobe atelectasis. No focal pneumon ia. No acute osseous abnormality. No osteolytic or osteoblastic lesions. IMPRESSION: 1. Lung-RADS category 2: Benign appearance or behavior. Continue annual screening with noncontrast lo w-dose chest CT in 12 months. Reviewed, dictated and finalized at location A. ING MACHINE FEEDER IMPRESSION: 1. Lung-RADS category 2: Benign appearance or behavior. Continue annual screeni ng with noncontrast low-dose chest CT in 12 months.
== END 2020-06-25 13:53 | disposition home or self-care (01) ==
PROVIDERS: PCP Family Medicine; Visit Provider Nurse Practitioner
DX: Z12.2 Encounter for screening for malignant neoplasm of respiratory organs (principal); Z87.891 Personal history of nicotine dependence
CPT/HCPCS: G0297

== ENCOUNTER 2020-08-15 09:33 | Outpatient (CLI) | payer MEDICARE, MEDICAID, SELFPAY ==
--- NOTE | ~2020-08-15 | XR_ITS ---
EXAMINATION: XR wrist LT min 3V DATE: 08/15/2020 09:58 INDICATION: Osteoarthritis of scaphoid. Left wrist pain. TECHNIQUE: 4 views of left wrist were obtained. COMPARISON: Left hand radiographs 07/25/2019 FINDINGS: Bone alignment is normal. No fracture. There is severe osteoarthritis of first carpometacar pal joint and mild osteoarthritis of triscaphe joint. IMPRESSION: 1. Polyarticular osteoarthritis. Reviewed, dictated and finalized at location A. CONSULTANT
== END 2020-08-15 09:34 | disposition home or self-care (01) ==
PROVIDERS: PCP Nurse Practitioner; Visit Provider Plastic Surgery
DX: M19.032 Primary osteoarthritis, left wrist (principal)
CPT/HCPCS: 73110

== ENCOUNTER → 2020-09-15 01:10 | Outpatient (CLI) | payer MEDICARE, MEDICAID, SELFPAY ==
[2020-09-15 19:48] LABS: SARS-CoV-2 RNA PCR Negative
== END ==
PROVIDERS: PCP Nurse Practitioner; Visit Provider Plastic Surgery
DX: Z01.812 Encounter for preprocedural laboratory examination (principal); Z20.822 Contact with and (suspected) exposure to COVID-19
CPT/HCPCS: C9803; U0003; U0005

== ENCOUNTER 2020-09-18 11:00 | Outpatient (CLI) | payer MEDICARE, MEDICAID, SELFPAY ==
--- NOTE | 2020-09-18 11:15 | ECG_ITS ---
Measurements Intervals Alicia Rate: 92 P: 50 ID: [id number] QRS: -12 QRSD: 93 T: 44 QT: 362 QTc: 449 Interpretive Statements SINUS RHYTHM LOW QRS VOLTAGE IN PRECORDIAL LEADS BORDERLINE R WAVE PROGRESSION, ANTERIOR LEADS MINIMAL Q WAVES- HIGH LATERAL LEADS BORDERLINE ECG Electronically Signed On 09-18-2020 12:04:39 [employer]TON [employer]UF[employer] by David Belcher D.O.
[2020-09-18 11:49] LABS: Anion Gap 6 mmol/L (8-16); Blood Urea Nitrogen 20 mg/dL (7-17); Calcium 9.4 mg/dL (8.4-10.2); Carbon Dioxide 29 mmol/L (22-30); Chloride 109 mmol/L (98-107); Estimated Glomerular Filt Rate > 60; Glucose 112 mg/dL (65-105); Potassium 3.8 mmol/L (3.4-5.0); Sodium 144 mmol/L (137-145)
== END 2020-09-18 11:01 | disposition home or self-care (01) ==
LOC: ANHSURGERY 11:03
PROVIDERS: Anesthesiology; PCP Nurse Practitioner; Visit Provider Plastic Surgery
DX: Z01.818 Encounter for other preprocedural examination (principal); E11.9 Type 2 diabetes mellitus without complications; Z87.891 Personal history of nicotine dependence
CPT/HCPCS: 36415; 80048; 93005

== ENCOUNTER 2020-09-19 02:05 | Day surgery (SDC) | payer MEDICARE, MEDICAID, SELFPAY ==
[2020-09-17 12:50] VITALS: BMI 27.6
--- NOTE | 2020-09-19 07:03 | WPDANESEPP ---
Anes - Eval Pre Procedure Procedure: Operation Date: 09/19/20 07:30 Proposed Procedures p Release Left First Dorsal Compartment - Kyle Howard MD Date/Time: 09/19/20 07:03 Pre Op Diagnosis: Left First C&C Joint OA Patient Data Age: 60 Gender: F Height: 1.73 m Weight: 82.3 kg Allergies Allergy/AdvReac Type Severity Reaction Status Date / Time No Known Allergies Allergy Verified 09/17/20 12:43 Home Medications Medication Instructions Recorded Confirmed Type budesonide-formoterol HFA 160 2 puff INHALATION BID #6 gm 05/19/19 09/17/20 Rx mcg-4.5 mcg/actuation aerosol inhaler esomeprazole magnesium 20 mg 20 mg PO DAILY #30 cap 05/19/19 09/17/20 Rx capsule,delayed release lancets 33 gauge #100 each 06/14/19 06/05/20 Rx blood sugar diagnostic #50 each 06/17/19 06/05/20 Rx blood-glucose meter #1 each 06/17/19 06/05/20 Rx apple cider vinegar 1 cap PO TID 09/01/19 09/17/20 History melatonin 5 mg PO HS 09/01/19 09/17/20 History multivitamin 1 tablet PO DAILY 09/01/19 09/17/20 History blood sugar diagnostic #100 each 02/02/20 06/05/20 Rx albuterol sulfate 90 mcg/actuation 2 inhalation INHALATION Q4H PRN 02/06/20 09/17/20 Rx aerosol inhaler #8.5 gm metformin 500 mg tablet 500 mg PO BID #180 tablet 04/18/20 09/17/20 Rx rosuvastatin 10 mg tablet 10 mg PO DAILY #90 tablet 04/18/20 09/17/20 Rx gabapentin 300 mg capsule 600 mg PO TID #180 cap 05/17/20 09/17/20 Rx hydrochlorothiazide 25 mg tablet 25 mg PO DAILY #90 tablet 06/04/20 09/17/20 Rx linaclotide 72 mcg capsule 72 mcg PO DAILY #30 cap 06/04/20 09/17/20 Rx lisinopril 5 mg tablet 5 mg PO DAILY #90 tablet 06/04/20 09/17/20 Rx divalproex 250 mg tablet,delayed See Rx Instructions .ROUTE 07/17/20 09/17/20 Rx release .COMPLEX #360 tablet diclofenac sodium 75 mg See Rx Instructions .ROUTE 07/30/20 09/17/20 Rx tablet,delayed release .COMPLEX #60 tablet cyclobenzaprine 10 mg tablet See Rx Instructions .ROUTE 08/20/20 09/17/20 Rx .COMPLEX #90 tablet buspirone 5 mg tablet 5 mg PO TID PRN #90 tablet 09/03/20 09/17/20 Rx sertraline 100 mg tablet 150 mg PO DAILY #45 tablet 09/03/20 09/17/20 Rx aspirin [Aspir-81] 81 mg PO DAILY 09/17/20 09/17/20 History docusate sodium [Colace] 100 mg PO TID 09/17/20 09/17/20 History simethicone [Gas-X Extra Strength] 125 mg PO TID 09/17/20 09/17/20 History Patient hx anesthesia problems: none Family hx anesthesia problems: none PMFSH Past Medical History Medical History Arthritis Cervical disc disease Colon polyp Constipation COPD (chronic obstructive pulmonary disease) Degenerative disc disease, lumbar Depression Fibromyalgia High cholesterol Hyperlipidemia Hypertension Irritable bowel syndrome with constipation Kidney stones Left shoulder pain Nausea Osteoporosis Restless leg syndrome Stomach pain Type 2 diabetes mellitus without complications Last A1C provided 02/02/20: 5 Weight loss Surgical History Surgical History H/O arthroscopic knee surgery (~2019) History of carpal tunnel release RT-2011 LT-1989 History of partial hysterectomy (~1985) placenta previa History of shoulder surgery (~2007) Right shoulder bone spurs History of tubal ligation (~1984) Family History Family History Grandparent Hypertension Family history of Parkinson's disease Mother Hypertension Other Family history of arthritis Social History Social History Smoking packs per day: 2 Smoking cigarettes per day: 40.0 Years smoked: 35 Smoking pack-years: 70.00 Smoking status: Current every day smoker Tobacco type: cigarettes Additional smoking assessment comments: NOW SMOKING 0.5PPD- HAD QUIT IN 07/2018 AND STARTED AGAIN AT 0.5PPD Alcohol intake: never Substance use: current Substance use
--- NOTE | 2020-09-19 07:09 | WPDANESEPPF ---
Anes - Initial Pre Proc Eval Procedure: Operation Date: 09/19/20 07:30 Proposed Procedures p Release Left First Dorsal Compartment - Kyle Howard MD Date/Time: 09/19/20 07:09 Surgeon: Kyle Howard MD Pre Op Diagnosis: Left First C&C Joint OA Patient Data Age: 60 Gender: F Height: 5 ft 8 in Weight: 82.3 kg Allergies Allergy/AdvReac Type Severity Reaction Status Date / Time No Known Allergies Allergy Verified 09/17/20 12:43 Home Medications Medication Instructions Recorded Confirmed Type budesonide-formoterol HFA 160 2 puff INHALATION BID #6 gm 05/19/19 09/17/20 Rx mcg-4.5 mcg/actuation aerosol inhaler esomeprazole magnesium 20 mg 20 mg PO DAILY #30 cap 05/19/19 09/17/20 Rx capsule,delayed release lancets 33 gauge #100 each 06/14/19 06/05/20 Rx blood sugar diagnostic #50 each 06/17/19 06/05/20 Rx blood-glucose meter #1 each 06/17/19 06/05/20 Rx apple cider vinegar 1 cap PO TID 09/01/19 09/17/20 History melatonin 5 mg PO HS 09/01/19 09/17/20 History multivitamin 1 tablet PO DAILY 09/01/19 09/17/20 History blood sugar diagnostic #100 each 02/02/20 06/05/20 Rx albuterol sulfate 90 mcg/actuation 2 inhalation INHALATION Q4H PRN 02/06/20 09/17/20 Rx aerosol inhaler #8.5 gm metformin 500 mg tablet 500 mg PO BID #180 tablet 04/18/20 09/17/20 Rx rosuvastatin 10 mg tablet 10 mg PO DAILY #90 tablet 04/18/20 09/17/20 Rx gabapentin 300 mg capsule 600 mg PO TID #180 cap 05/17/20 09/17/20 Rx hydrochlorothiazide 25 mg tablet 25 mg PO DAILY #90 tablet 06/04/20 09/17/20 Rx linaclotide 72 mcg capsule 72 mcg PO DAILY #30 cap 06/04/20 09/17/20 Rx lisinopril 5 mg tablet 5 mg PO DAILY #90 tablet 06/04/20 09/17/20 Rx divalproex 250 mg tablet,delayed See Rx Instructions .ROUTE 07/17/20 09/17/20 Rx release .COMPLEX #360 tablet diclofenac sodium 75 mg See Rx Instructions .ROUTE 07/30/20 09/17/20 Rx tablet,delayed release .COMPLEX #60 tablet cyclobenzaprine 10 mg tablet See Rx Instructions .ROUTE 08/20/20 09/17/20 Rx .COMPLEX #90 tablet buspirone 5 mg tablet 5 mg PO TID PRN #90 tablet 09/03/20 09/17/20 Rx sertraline 100 mg tablet 150 mg PO DAILY #45 tablet 09/03/20 09/17/20 Rx aspirin [Aspir-81] 81 mg PO DAILY 09/17/20 09/17/20 History docusate sodium [Colace] 100 mg PO TID 09/17/20 09/17/20 History simethicone [Gas-X Extra Strength] 125 mg PO TID 09/17/20 09/17/20 History Patient hx anesthesia problems: none Family hx anesthesia problems: none PMFSH Past Medical History Medical History Arthritis Cervical disc disease Colon polyp Constipation COPD (chronic obstructive pulmonary disease) Degenerative disc disease, lumbar Depression Fibromyalgia High cholesterol Hyperlipidemia Hypertension Irritable bowel syndrome with constipation Kidney stones Left shoulder pain Nausea Osteoporosis Restless leg syndrome Stomach pain Type 2 diabetes mellitus without complications Last A1C provided 02/02/20: 5 Weight loss Surgical History Surgical History H/O arthroscopic knee surgery (~2019) History of carpal tunnel release RT-2011 LT-1989 History of partial hysterectomy (~1985) placenta previa History of shoulder surgery (~2007) Right shoulder bone spurs History of tubal ligation (~1984) Family History Family History Grandparent Hypertension Family history of Parkinson's disease Mother Hypertension Other Family history of arthritis Social History Social History Smoking packs per day: 2 Smoking cigarettes per day: 40.0 Years smoked: 35 Smoking pack-years: 70.00 Smoking status: Current every day smoker Tobacco type: cigarettes Additional smoking assessment comments: NOW SMOKING 0.5PPD- HAD QUIT IN 07/2018 AND STARTED AGAIN AT 0.5PPD Alcohol intake: n
--- NOTE | 2020-09-19 07:12 | WPDHPUPDATE1 ---
History and Physical Update Update Date/Time: 09/19/20 07:12 History and Physical has been reviewed, including an updated exam of the patient. There are NO changes in the patient's condition. Risks, benefits, and alternatives have been discussed and questions answered. Patient agrees to proceed with procedure.
[2020-09-19] MEDS: LACTATED RINGERS 1,000 ML 30 ML IV CONT (07:13)
[2020-09-19 07:20] LABS: Glucose Point of Care 93 (65-105)
[2020-09-19 07:22] VITALS: BP 126/83; PULSE 101; RESP 18; TEMP 36.4; O2SAT 98
[2020-09-19] MEDS: LIDO 1%/EPINEPHRINE 1:100,000 50 ML VIAL INFILTRATE (07:51)
--- NOTE | 2020-09-19 07:52 | PM.OP ---
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 Post-op diagnosis: same Procedure performed: Release of left first dorsal compartment. Anesthesia: MAC Surgeon: Kyle Howard MD Tourniquet time (min): 3 Drains: No Packing: No Pathology: none sent Complications: None Condition: stable Disposition: same day
[2020-09-19 08:00] VITALS: BP 114/80; PULSE 94; RESP 12; O2SAT 99
--- NOTE | 2020-09-19 08:01 | PM.PROC ---
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 The patient was taken to the operating room and placed supine on the operating table. A time-out was held and confirmed. The site was prepped and draped in usual fashion. The site was marked for incision. It was locally infiltrated with 1% lidocaine with epinephrine. The tourniquet was inflated to 250 mmHg. The small transverse incision was made over the radial styloid. Dissection was carried bluntly through the subcutaneous tissue. Care was taken to preserve cutaneous nerves. The 1st dorsal compartment was incised along its palmar edge. The compartment was opened the abductor pollicis longus and extensor pollicis brevis were identified within that the extensor pollicis brevis was not in the separate compartment. The wound was closed with intradermal 4-0 Monocryl suture. Small bandage was applied with Werner wrap. The tourniquet was released and she is discharged with instructions in wound care and follow-up. She has a prescription for hydrocodone / number 4 Surgeon: Kyle Howard MD
[2020-09-19 08:22] LABS: Glucose Point of Care 90 (65-105)
[2020-09-19 08:30] VITALS: BP 120/77; PULSE 94; RESP 14; O2SAT 96
== END 2020-09-19 08:47 | disposition home or self-care (01) ==
PROVIDERS: PCP Nurse Practitioner; Visit Provider Plastic Surgery
PROC: (CPT 25000; principal; 2020-09-19 07:30)
DX: M65.4 Radial styloid tenosynovitis [de Quervain] (principal); I10 Essential (primary) hypertension; J44.9 Chronic obstructive pulmonary disease, unspecified; E78.5 Hyperlipidemia, unspecified; K58.1 Irritable bowel syndrome with constipation; M79.7 Fibromyalgia; M81.0 Age-related osteoporosis without current pathological fracture; E11.9 Type 2 diabetes mellitus without complications; G25.81 Restless legs syndrome; F32.9 Major depressive disorder, single episode, unspecified; M51.36 Other intervertebral disc degeneration, lumbar region; M50.30 Other cervical disc degeneration, unspecified cervical region; F17.210 Nicotine dependence, cigarettes, uncomplicated; F12.90 Cannabis use, unspecified, uncomplicated; Z79.51 Long term (current) use of inhaled steroids; Z79.84 Long term (current) use of oral hypoglycemic drugs; Z79.82 Long term (current) use of aspirin
CPT/HCPCS: 25000; 82948; A9270; J2250; J2405; J2704; J3010; J7120

== ENCOUNTER 2020-11-07 11:29 | Outpatient (CLI) | payer MEDICARE, MEDICAID, SELFPAY ==
[2020-11-07 13:41] LABS: Valproic Acid 67.3 ug/mL (50-120)
== END 2020-11-07 11:30 | disposition home or self-care (01) ==
LOC: ANHSURGERY 11:33
PROVIDERS: Anesthesiology; PCP Nurse Practitioner; Visit Provider Plastic Surgery
DX: Z01.818 Encounter for other preprocedural examination (principal); Z79.899 Other long term (current) drug therapy
CPT/HCPCS: 36415; 80164

== ENCOUNTER → 2020-11-12 00:13 | Outpatient (CLI) | payer MEDICARE, MEDICAID, SELFPAY ==
[2020-11-12 19:16] LABS: SARS-CoV-2 RNA PCR Negative
== END ==
PROVIDERS: PCP Nurse Practitioner; Visit Provider Plastic Surgery
DX: Z01.812 Encounter for preprocedural laboratory examination (principal); Z20.822 Contact with and (suspected) exposure to COVID-19
CPT/HCPCS: C9803; U0003; U0005

== ENCOUNTER 2020-11-15 01:40 | Day surgery (SDC) | payer MEDICARE, MEDICAID, SELFPAY ==
[2020-11-06 13:25] VITALS: BMI 27.3
[2020-11-15] VITALS (11 sets, daily range): BP systolic 93–156; BP diastolic 60–80; PULSE 86–109; RESP 11–20; TEMP 36.6–36.8; O2SAT 92–99
--- NOTE | ~2020-11-15 | XR_ITS ---
EXAMINATION: XR surgery orthopedic DATE: 11/15/2020 09:55 INDICATION: Left thumb arthroplasty TECHNIQUE: 4 fluoroscopic images of the radial aspect of the left carpus were obtained during procedu re performed by Dr. Howard. Radiologist was not present for the imaging or procedure. The amount of fl uoroscopy time used during this procedure was 2.2 minutes. COMPARISON: 08/15/2020 FINDINGS: Images demonstrate changes of a first carpal metacarpal suspension arthroplasty with resection of the trapezium. There is expected secondary proximal migration of the base of the first metacarpal into t he resection bed where there is also an expected small amount of postoperative gas in the soft tissue s. IMPRESSION: 1. Expected appearance post trapezium resection for first carpal metacarpal suspension arthroplasty. See procedure note for further detail. Reviewed, dictated and finalized at location A. IMPRESSION: 1. Expected appearance post trapezium resection for first carpal metacarpal lazaro pension arthroplasty. See procedure note for further detail.
--- NOTE | 2020-11-15 06:50 | WPDANESEPPF ---
Anes - Initial Pre Proc Eval Procedure: Operation Date: 11/15/20 07:30 Proposed Procedures p Left Trapezium Resection Arthroplasty with Internal Brace - Kyle Howard MD Date/Time: 11/15/20 06:50 Surgeon: Kyle Howard MD Pre Op Diagnosis: left basal joint OA Patient Data Age: 60 Gender: F Height: 5 ft 8 in Weight: 84 kg Last Vital Signs Temp 36.6 C 11/15/20 06:48 Pulse 90 11/15/20 06:48 Resp 16 11/15/20 06:48 BP 93/60 L 11/15/20 06:48 Pulse Ox 99 11/15/20 06:48 Allergies Allergy/AdvReac Type Severity Reaction Status Date / Time No Known Allergies Allergy Verified 11/15/20 06:19 Home Medications Medication Instructions Recorded Confirmed Type budesonide-formoterol HFA 160 2 puff INHALATION BID #6 gm 05/19/19 11/06/20 Rx mcg-4.5 mcg/actuation aerosol inhaler esomeprazole magnesium 20 mg 20 mg PO DAILY #30 cap 05/19/19 11/15/20 Rx capsule,delayed release lancets 33 gauge #100 each 06/14/19 06/05/20 Rx blood sugar diagnostic #50 each 06/17/19 06/05/20 Rx blood-glucose meter #1 each 06/17/19 06/05/20 Rx apple cider vinegar 1 cap PO TID 09/01/19 11/15/20 History melatonin 5 mg PO HS 09/01/19 11/15/20 History multivitamin 1 tablet PO DAILY 09/01/19 11/15/20 History blood sugar diagnostic #100 each 02/02/20 06/05/20 Rx albuterol sulfate 90 mcg/actuation 2 inhalation INHALATION Q4H PRN 02/06/20 11/06/20 Rx aerosol inhaler #8.5 gm gabapentin 300 mg capsule 600 mg PO TID #180 cap 05/17/20 11/15/20 Rx hydrochlorothiazide 25 mg tablet 25 mg PO DAILY #90 tablet 06/04/20 11/15/20 Rx linaclotide 72 mcg capsule 72 mcg PO DAILY #30 cap 06/04/20 11/15/20 Rx lisinopril 5 mg tablet 5 mg PO DAILY #90 tablet 06/04/20 11/15/20 Rx sertraline 100 mg tablet 150 mg PO DAILY #45 tablet 09/03/20 11/15/20 Rx aspirin 81 mg PO DAILY 09/17/20 11/15/20 History docusate sodium [Colace] 100 mg PO TID 09/17/20 11/15/20 History simethicone [Gas-X Extra Strength] 125 mg PO TID 09/17/20 11/15/20 History cyclobenzaprine 5 - 10 mg PO TID 11/06/20 11/15/20 History diclofenac sodium 75 mg PO BID PRN 11/06/20 11/15/20 History divalproex 500 mg PO BID 11/06/20 11/15/20 History metformin 500 mg tablet See Rx Instructions .ROUTE 11/09/20 Rx .COMPLEX #180 tablet rosuvastatin 10 mg tablet See Rx Instructions .ROUTE 11/09/20 Rx .COMPLEX #90 tablet buspirone 5 mg tablet 5 mg PO TID PRN #90 tablet 11/13/20 Rx Patient hx anesthesia problems: none Family hx anesthesia problems: none PMFSH Past Medical History Medical History Arthritis Cervical disc disease Colon polyp Constipation COPD (chronic obstructive pulmonary disease) Degenerative disc disease, lumbar Depression Fibromyalgia High cholesterol Hyperlipidemia Hypertension Irritable bowel syndrome with constipation Kidney stones Left shoulder pain Nausea Osteoporosis Restless leg syndrome Stomach pain Type 2 diabetes mellitus without complications Last A1C provided 02/02/20: 5 Weight loss Surgical History Surgical History H/O arthroscopic knee surgery (~2019) History of carpal tunnel release RT-2011 LT-1989 History of partial hysterectomy (~1985) placenta previa History of shoulder surgery (~2007) Right shoulder bone spurs History of tubal ligation (~1984) Family History Family History Grandparent Hypertension Family history of Parkinson's disease Mother Hypertension Other Family history of arthritis Social History Social History Smoking packs per day: 1.5 Smoking cigarettes per day: 30.0 Years smoked: 30 Smoking pack-years: 45.00 Smoking status: Current every day smoker Tobacco type: cigarettes Additional smoking assessment comments: WORKING ON QUITTING NOW Alcohol intake: driss
[2020-11-15] MEDS: LACTATED RINGERS 1,000 ML 30 ML IV CONT ×2 (06:53→10:43)
[2020-11-15 06:57] LABS: Glucose Point of Care 104 (65-105)
--- NOTE | 2020-11-15 07:09 | WPDHPUPDATE1 ---
History and Physical Update Update Date/Time: 11/15/20 07:09 History and Physical has been reviewed, including an updated exam of the patient. There are NO changes in the patient's condition. Risks, benefits, and alternatives have been discussed and questions answered. Patient agrees to proceed with procedure.
[2020-11-15] MEDS: ceFAZolin 2 GM/D5W 50 ML 2 GM/50 ML BAG IVPB (07:28)
[2020-11-15] MEDS: BACITRACIN OINTMENT 15 GM TUBE 1 APPLIC TOPICAL (08:00)
[2020-11-15] MEDS: LIDO 1%/EPINEPHRINE 1:100,000 50 ML VIAL INFILTRATE (08:00)
[2020-11-15] MEDS: BUPIVACAINE HCL 0.5% PF 30 ML VIAL INFILTRATE (09:33)
--- NOTE | 2020-11-15 10:05 | PM.OP ---
Procedure Note - Brief Procedure Note - Brief Date of procedure: 11/15/20 Pre-op diagnosis: left basal joint OA Post-op diagnosis: same Procedure performed: Trapezium resection arthroplasty with Arthrex InternalBrace. Implants: Internal Brace strap. Anesthesia: GETA Surgeon: Kyle Howard MD Estimated blood loss (mL): 50 Tourniquet time (min): 114 Drains: No Packing: No Pathology: none sent Complications: No immediate complications Condition: stable Disposition: PACU
--- NOTE | 2020-11-15 10:17 | SUR.OPER ---
Tourniquet inflated 250mmHg at 1015, down at 1021
--- NOTE | 2020-11-15 10:42 | P.OP_ITS ---
Procedure Note - Detailed Date of procedure: 11/15/20 Pre-op diagnosis: left basal joint OA Post-op diagnosis: same Procedure performed: Left trapezium resection arthroplasty with Arthrex internal brace. Description of procedure: The patient is the left trapezium was marked with the patient in the holding area. She was taken to the operating room placed supine on the operating table. The time-out was held and confirmed. She was given ge neral endotracheal anesthesia the extremity was prepped and draped in usual fashion. The site was marked for the incision this was locally infiltrate with 1% lidocaine. The tourniquet was inflated to 250 mmHg. The incision was made as marked and dissection was carried through the subcutaneous tissue preserving cutaneous nerves and larger veins. The interspace between the extensor pollicis brevis and the abductor pollicis longus was incised exposing the basal joint. There was a great deal of synovial hypertrophy in this area and some of that was trimmed out. The trapezium was dissected with sharp and blunt dissection and eventually removed piecemeal with rongeur. C-arm images were made to confirm that. With the Arthrex internal brace kit the radial base of the 2nd metacarpal was drilled and over-drilled and the Arthrex internal brace with strap was applied. The radial base of the 1st metacarpal was dissected for placement of the 2nd anchor. This was done the same way. The initial anchor could not be utilized for mechanical regions and the same fenestration was utilized to place a 2nd anchor. This was stable. For the joint capsule that could be repaired was with 4-0 Vicryl suture during the closure with the tourniquet released there was bleeding. This required us to PRE gown and restart the tourniquet. Approximately 15 minutes and then allowed in between those 2 tourniquet starts. I we determined that there was no arterial bleeding there was a fair amount of venous bleeding we were able to cauterize some of that other parts were finally held under pressure was after placing Surgicel. The wound was closed with running 5 0 nylon. There was no bleeding at that point. A bulky gauze bandage with Werner wrap was applied and that will be re-evaluated in the recovery. The area had been also injected with 0.5% Marcaine plain. The patient will be discharged with an ortho glass radial splint to be placed later. She will be discharged with instructions in wound care and follow-up and a prescription for hydrocodone . Anesthesia: GETA Surgeon: Kyle Howard MD Concrete Panel Installer: Tito Estimated blood loss (mL): 60 Tourniquet time (min): 119 Drains: No Packing: No Pathology: none sent Complications: No immediate complications Condition: stable Disposition: PACU
[2020-11-15] MEDS: fentaNYL CITRATE INJ (*CRX) 100 MCG/2 ML VIAL 25 MCG IV PUSH ×6 (11:08→13:10)
--- NOTE | 2020-11-15 11:25 | SUR.PHASEI ---
called dr brumfield and informed pt o2 sat 90% on room air,ordered nebulizer respiratory treatment with albuterol.
[2020-11-15] MEDS: ALBUTEROL SULFATE NEB 2.5 MG/0.5 ML INH INHALATION (11:35)
--- NOTE | 2020-11-15 11:38 | SUR.PHASEI ---
1138 albuterol respiratory treatment given per therapist.
[2020-11-15] MEDS: oxyCODONE HCL (*CRX) 5 MG TAB IR PO (12:02)
[2020-11-15 12:50] LABS: Glucose Point of Care 130 (65-105)
--- NOTE | 2020-11-15 13:57 | SUR.PHASEII ---
1315 dr patel at bedside changing surgical dressing and adding a splint. sling is sent home with pt for comfort
== END 2020-11-15 13:45 | disposition home or self-care (01) ==
PROVIDERS: PCP Nurse Practitioner; Visit Provider Plastic Surgery
PROC: (CPT 25447; principal; 2020-11-15 07:30)
DX: M18.12 Unilateral primary osteoarthritis of first carpometacarpal joint, left hand (principal); Z79.82 Long term (current) use of aspirin; Z79.84 Long term (current) use of oral hypoglycemic drugs; Z79.51 Long term (current) use of inhaled steroids; J44.9 Chronic obstructive pulmonary disease, unspecified; M51.36 Other intervertebral disc degeneration, lumbar region; F32.9 Major depressive disorder, single episode, unspecified; M79.7 Fibromyalgia; E78.5 Hyperlipidemia, unspecified; E78.00 Pure hypercholesterolemia, unspecified; I10 Essential (primary) hypertension; K58.1 Irritable bowel syndrome with constipation; M81.0 Age-related osteoporosis without current pathological fracture; G25.81 Restless legs syndrome; E11.9 Type 2 diabetes mellitus without complications; F17.210 Nicotine dependence, cigarettes, uncomplicated; F12.90 Cannabis use, unspecified, uncomplicated
CPT/HCPCS: 25447; 82948; 94640; A9270; C1713; J0690; J1100; J2250; J2405; J2704; J3010; J7120

== ENCOUNTER 2021-02-15 07:51 | Outpatient (CLI) | payer MEDICARE, MEDICAID, SELFPAY ==
--- NOTE | ~2021-02-15 | MM_ITS ---
EXAMINATION: MM screening galina BI w kristie HISTORY: Screening TECHNIQUE: Craniocaudal and mediolateral oblique 3-D tomosynthesis images were obtained and synthetic 2-D images were generated. CAD analysis was submitted and interpreted. COMPARISON: Comparison to multiple prior studies sequentially, with oldest reviewed study dated 03/2015. BREAST PARENCHYMAL COMPOSITION: The breasts are almost entirely fatty. FINDINGS: There is no evidence of suspicious mass, calcification, or architectural distortion to sugg est malignancy in either breast. There has been no suspicious interval change. IMPRESSION: 1. No mammographic evidence of malignancy. 2. Recommend routine screening mammography in one year. BI-RADS Category 1: Negative Reviewed, dictated and finalized at location A.
== END 2021-02-15 07:52 | disposition home or self-care (01) ==
PROVIDERS: PCP Nurse Practitioner; Visit Provider Nurse Practitioner
DX: Z12.31 Encounter for screening mammogram for malignant neoplasm of breast (principal)
CPT/HCPCS: 77063; 77067

== ENCOUNTER 2021-02-21 16:14 | Emergency (ER) | payer MEDICARE, MEDICAID, SELFPAY ==
[2021-02-21 16:59] VITALS: BP 96/71; PULSE 101; RESP 18; TEMP 36.8; O2SAT 100
--- NOTE | 2021-02-21 20:16 | PC.NURSE ---
no answer x2 at triage
== END 2021-02-21 20:16 | disposition left against medical advice (07) ==
PROVIDERS: PCP Nurse Practitioner
DX: Z53.21 Procedure and treatment not carried out due to patient leaving prior to being seen by health care provider (principal)
CPT/HCPCS: 99199

== ENCOUNTER 2021-03-13 00:58 | Day surgery (SDC) | payer MEDICARE, MEDICAID, SELFPAY ==
[2021-03-07 13:43] VITALS: BMI 27.6
[2021-03-13 08:53] VITALS: BP 126/84; PULSE 97; RESP 18; TEMP 36.7; O2SAT 99; BMI 27.4
[2021-03-13] MEDS: LACTATED RINGERS 1,000 ML 150 ML IV CONT (09:17)
[2021-03-13 09:19] LABS: Glucose Point of Care 106 mg/dl (65-105)
--- NOTE | 2021-03-13 09:27 | WPDANESEPPF ---
Anes - Initial Pre Proc Eval Procedure: Operation Date: 03/13/21 10:00 Proposed Procedures p Screening Colonoscopy - Ishmael Hess MD Date/Time: 03/13/21 09:27 Surgeon: Ishmael Hess MD Pre Op Diagnosis: neoplasm screening Patient Data Age: 60 Gender: F Height: 1.73 m Weight: 81.8 kg Last Vital Signs Temp 98.0 F 03/13/21 08:53 Pulse 97 03/13/21 08:53 Resp 18 03/13/21 08:53 BP 126/84 03/13/21 08:53 Pulse Ox 99 03/13/21 08:53 Allergies Allergy/AdvReac Type Severity Reaction Status Date / Time No Known Allergies Allergy Verified 03/13/21 09:03 Home Medications Medication Instructions Recorded Confirmed Type esomeprazole magnesium 20 mg 20 mg PO DAILY #30 cap 05/19/19 03/13/21 Rx capsule,delayed release lancets 33 gauge #100 each 06/14/19 03/13/21 Rx apple cider vinegar 2 cap PO TID 09/01/19 03/13/21 History melatonin 10 mg PO HS 09/01/19 03/13/21 History multivitamin 1 tablet PO DAILY 09/01/19 03/13/21 History aspirin 81 mg PO DAILY 09/17/20 03/13/21 History docusate sodium [Colace] 100 mg PO TID 09/17/20 03/13/21 History simethicone [Gas-X Extra Strength] 125 mg PO TID 09/17/20 03/13/21 History rosuvastatin 10 mg tablet See Rx Instructions .ROUTE 11/09/20 03/13/21 Rx .COMPLEX #90 tablet lisinopril 5 mg tablet See Rx Instructions .ROUTE 11/27/20 03/13/21 Rx .COMPLEX #90 tablet sertraline 50 mg tablet See Rx Instructions .ROUTE 11/27/20 03/13/21 Rx .COMPLEX #90 tablet albuterol sulfate 90 mcg/actuation 2 inh INHALATION Q4H PRN #8.5 gm 12/17/20 03/13/21 Rx aerosol inhaler hydrochlorothiazide 25 mg tablet 25 mg PO DAILY #90 tablet 12/17/20 03/13/21 Rx blood sugar diagnostic #100 each 12/18/20 03/13/21 Rx fluticasone 100 mcg-salmeterol 50 1 inh INHALATION Q12H #60 ea 12/24/20 03/13/21 Rx mcg/dose blistr powdr for inhalation metformin 500 mg tablet 500 mg PO DAILY #180 tablet 12/25/20 03/13/21 Rx fenofibrate 54 mg tablet 54 mg PO DAILY #30 tablet 01/01/21 03/13/21 Rx cyclobenzaprine 10 mg tablet 5 - 10 mg PO TID PRN #90 tablet 01/15/21 03/13/21 Rx diclofenac sodium 75 mg See Rx Instructions .ROUTE 01/16/21 03/13/21 Rx tablet,delayed release .COMPLEX #60 tablet divalproex 250 mg tablet,delayed 500 mg PO BID #120 tablet 01/25/21 03/13/21 Rx release gabapentin 300 mg capsule 600 mg PO TID #180 cap 02/19/21 03/13/21 Rx linaclotide 72 mcg capsule 72 mcg PO DAILY #30 cap 03/07/21 03/13/21 Rx alprazolam 0.25 mg tablet 0.25 mg PO DAILY PRN #30 tablet 03/08/21 03/13/21 Rx Laboratory Tests 03/13/21 09:12 POC Capillary Glucose 106 mg/dl H mg/dl (65-105) Patient hx anesthesia problems: none Family hx anesthesia problems: none PMFSH Past Medical History Medical History (Updated 12/17/20 @ 16:34 by Joy Valverde NP) Arthritis Cervical disc disease Chronic pain of right thumb Colon polyp COPD (chronic obstructive pulmonary disease) Degenerative disc disease, lumbar Depression Fibromyalgia Hyperlipidemia Hypertension Irritable bowel syndrome with constipation Kidney stones Lateral meniscal tear Left shoulder pain Medial meniscus tear Medial meniscus tear Osteoporosis Restless leg syndrome Type 2 diabetes mellitus without complications Last A1C provided 02/02/20: 5 Surgical History Surgical History H/O arthroscopic knee surgery (~2019) H/O hand surgery Bone removed from left hand. 11/2020. History of carpal tunnel release RT-2011 LT-1989 History of partial hysterectomy (~1985) placenta previa History of shoulder surgery (~2007) Right shoulder bone spurs History of tubal ligation (~1984) Family History Family History Grandparent Hypertension Family history of Parkinson's disease Mother Hypertension Other Family history of arthritis Social History Social History (Reviewed 12/17/20 @
--- NOTE | 2021-03-13 09:39 | PM.HPGS ---
History of Present Illness History of Present Illness Consent: Risks, benefits, and alternatives have been discussed and questions answered. Patient agrees to proceed with procedure. Chief complaint: neoplasm screening Narrative: Rupal Hernandez is a 60 year old female here for screening colonoscopy, last one 10 years ago. Review of Systems Constitutional: Constitutional: Denies headache(s) and Denies weakness Eyes: Eyes: Denies blurry vision ENT: Reports Normal hearing present, Denies headache(s) and Denies neck pain Cardiovascular: Cardiovascular: Denies chest pain and Denies dyspnea Respiratory: Respiratory: Denies dyspnea Gastrointestinal: Gastrointestinal: Reports no additional gastrointestinal complaints Genitourinary: Genitourinary: Denies dysuria Musculoskeletal: Musculoskeletal: Denies neck pain Integumentary/Breasts: Skin/Breast: Denies dry skin Neurologic: Reports Normal hearing present, Denies headache(s) and Denies weakness Psychiatric: Psychiatric: Denies anxiety Endocrine: Endocrine: Denies change in body appearance Hematologic/Lymphatic: Hematologic/Lymphatic: Denies easy bleeding Allergic/Immunologic: Allergic/Immunologic: Denies urticaria PMFSH Past Medical History Medical History (Updated 03/13/21 @ 09:40 by Ishmael Hess MD) Arthritis Cervical disc disease Chronic pain of right thumb Colon cancer screening Colon polyp COPD (chronic obstructive pulmonary disease) Degenerative disc disease, lumbar Depression Fibromyalgia Hyperlipidemia Hypertension Irritable bowel syndrome with constipation Kidney stones Lateral meniscal tear Left shoulder pain Medial meniscus tear Medial meniscus tear Osteoporosis Restless leg syndrome Type 2 diabetes mellitus without complications Last A1C provided 02/02/20: 5 Surgical History Surgical History H/O arthroscopic knee surgery (~2019) H/O hand surgery Bone removed from left hand. 11/2020. History of carpal tunnel release RT-2011 LT-1989 History of partial hysterectomy (~1985) placenta previa History of shoulder surgery (~2007) Right shoulder bone spurs History of tubal ligation (~1984) Family History Family History Grandparent Hypertension Family history of Parkinson's disease Mother Hypertension Other Family history of arthritis Social History Social History Smoking packs per day: 0.5 Smoking cigarettes per day: 10.0 Years smoked: 30 Smoking pack-years: 15.00 Smoking status: Current every day smoker Tobacco type: cigarettes Additional smoking assessment comments: WORKING ON QUITTING NOW Alcohol intake: former Substance use: current Substance use type: other Other substance usage details: 100mg thc gummies Last use: 11/05/20 Living arrangements: with family Gender identity (if verbalized by the patient): Female Spiritual care concerns: No Meds Home Medications and Allergies Home Medications Medication Instructions Recorded Confirmed Type esomeprazole magnesium 20 mg 20 mg PO DAILY #30 cap 05/19/19 03/13/21 Rx capsule,delayed release lancets 33 gauge #100 each 06/14/19 03/13/21 Rx apple cider vinegar 2 cap PO TID 09/01/19 03/13/21 History melatonin 10 mg PO HS 09/01/19 03/13/21 History multivitamin 1 tablet PO DAILY 09/01/19 03/13/21 History aspirin 81 mg PO DAILY 09/17/20 03/13/21 History docusate sodium [Colace] 100 mg PO TID 09/17/20 03/13/21 History simethicone [Gas-X Extra Strength] 125 mg PO TID 09/17/20 03/13/21 History rosuvastatin 10 mg tablet See Rx Instructions .ROUTE 11/09/20 03/13/21 Rx .COMPLEX #90 tablet lisinopril 5 mg tablet See Rx Instructions .ROUTE 11/27/20 03/13/21 Rx .COMPLEX #90 tablet sertraline 50 mg tablet See Rx Instructions .ROUTE 11/27/20 03/13/21 Rx .COMPLEX #90
[2021-03-13 10:00] VITALS: BP 110/68; PULSE 92; RESP 18; O2SAT 99
[2021-03-13 10:10] VITALS: BP 114/68; PULSE 92; RESP 18; O2SAT 99
[2021-03-13 10:20] VITALS: BP 120/78; PULSE 90; RESP 18; O2SAT 99
== END 2021-03-13 10:55 | disposition home or self-care (01) ==
PROVIDERS: PCP Family Medicine; Visit Provider Internal Medicine Gastroenterology
PROC: 0DJD8ZZ Inspection of Lower Intestinal Tract, Via Natural or Artificial Opening Endoscopic (ICD-10-PCS; CPT 45378; principal; 2021-03-13 10:00)
DX: Z12.11 Encounter for screening for malignant neoplasm of colon (principal); K57.30 Diverticulosis of large intestine without perforation or abscess without bleeding; K64.8 Other hemorrhoids; K64.4 Residual hemorrhoidal skin tags; J44.9 Chronic obstructive pulmonary disease, unspecified; I10 Essential (primary) hypertension; E78.5 Hyperlipidemia, unspecified; E11.9 Type 2 diabetes mellitus without complications; M81.0 Age-related osteoporosis without current pathological fracture; K58.1 Irritable bowel syndrome with constipation; M79.7 Fibromyalgia; G25.81 Restless legs syndrome; Z79.82 Long term (current) use of aspirin; Z79.51 Long term (current) use of inhaled steroids; Z79.84 Long term (current) use of oral hypoglycemic drugs; F17.210 Nicotine dependence, cigarettes, uncomplicated
CPT/HCPCS: G0121; 82948; J2704; J7120

== ENCOUNTER 2021-05-26 08:04 | Emergency (ER) | payer MEDICARE, MEDICAID, SELFPAY ==
--- NOTE | ~2021-05-26 | XR_ITS ---
EXAMINATION: XR chest 2V DATE: 05/26/2021 08:34 INDICATION: Right-sided rib pain TECHNIQUE: Frontal and lateral views of the chest are obtained COMPARISON: 09/30/2018 FINDINGS: The lungs are free of acute opacities. There is no pleural effusion or pneumothorax. The ca rdiomediastinal silhouette is normal. There is mild thoracic spondylosis. IMPRESSION: 1. No acute cardiopulmonary abnormality. Reviewed, dictated and finalized at location A. M ATTORNEY
[2021-05-26 08:15] VITALS: BP 140/93; PULSE 105; RESP 16; TEMP 37; O2SAT 99
--- NOTE | 2021-05-26 08:17 | ED.ABDPAIN ---
HPI - Abdominal Pain General Chief Complaint: Abdominal Pain Stated Complaint: Right Side Pain Source: patient and RN notes reviewed Mode of arrival: ambulatory Limitations: no limitations History of Present Illness MD elicited complaint: abdominal pain Related Data Home Medications Medication Instructions Recorded Confirmed apple cider vinegar 2 cap PO TID 09/01/19 04/09/21 melatonin 10 mg PO HS 09/01/19 04/09/21 multivitamin 1 tablet PO DAILY 09/01/19 04/09/21 aspirin 81 mg PO DAILY 09/17/20 04/09/21 docusate sodium [Colace] 100 mg PO TID 09/17/20 04/09/21 simethicone [Gas-X Extra Strength] 125 mg PO TID 09/17/20 04/09/21 Allergies Allergy/AdvReac Type Severity Reaction Status Date / Time No Known Allergies Allergy Verified 03/13/21 09:03 Review of Systems Review of Systems: CONSTITUTIONAL: Denies malaise, chills, sweats, or fever. EYES: Denies visual changes, redness, or discharge. ENT: Denies rhinorrhea, congestion, sinus pain, otalgia or sore throat. CARDIOVASCULAR: Denies chest pain, palpitations, or edema. RESPIRATORY: Denies cough or dyspnea. GASTROINTESTINAL: Denies abdominal pain, nausea, vomiting, diarrhea, bloody, or mucous stools. GENITOURINARY: Denies dysuria or hematuria. SKIN: Denies rash or itching. MUSCULOSKELETAL: Denies back pain, joint pain, or myalgia. NEUROLOGIC: Denies numbness, weakness, or headache. PSYCHIATRIC: Denies anxiety or depression. All systems reviewed & are unremarkable except as noted in HPI and below PMFSH Past Medical History Medical History Arthritis Cervical disc disease Chronic pain of right thumb Colon polyp COPD (chronic obstructive pulmonary disease) Degenerative disc disease, lumbar Depression Fibromyalgia Hyperlipidemia Hypertension Irritable bowel syndrome with constipation Kidney stones Lateral meniscal tear Left shoulder pain Medial meniscus tear Medial meniscus tear Osteoporosis Restless leg syndrome Type 2 diabetes mellitus without complications Last A1C provided 02/02/20: 5 Surgical History Surgical History H/O arthroscopic knee surgery (~2019) H/O hand surgery Bone removed from left hand. 11/2020. History of carpal tunnel release RT-2011 LT-1989 History of partial hysterectomy (~1985) placenta previa History of shoulder surgery (~2007) Right shoulder bone spurs History of tubal ligation (~1984) Family History Family History Grandparent Hypertension Family history of Parkinson's disease Mother Hypertension Other Family history of arthritis Social History Social History Smoking packs per day: 0.5 Smoking cigarettes per day: 10.0 Years smoked: 30 Smoking pack-years: 15.00 Smoking status: Current every day smoker Tobacco type: cigarettes Additional smoking assessment comments: WORKING ON QUITTING NOW Alcohol intake: former Substance use: current Substance use type: other Other substance usage details: 100mg thc gummies Last use: 11/05/20 Gender identity (if verbalized by the patient): Female Spiritual care concerns: No Comments At time of signature, agree with nursing past medical, surgical, social and family history. There is no relevant family history pertinent to the presenting complaint Exam Narrative: GENERAL: Well-appearing, well-nourished, and in no acute distress. HEAD: Normocephalic, atraumatic. EYES: PERRLA, conjunctivae clear, and EOMI. ENT: Nares clear, turbinates pink, no rhinorrhea or epistaxis. Mucous membranes moist. Oropharynx without edema, erythema, or lesions. Tonsils not enlarged and without exudate. NECK: Supple. No lymphadenopathy CHEST: Speaks in full sentences. No respiratory distress. HEART: Regular rate and rhythm. ABDOMEN: Soft, flat, nondistended. No guarding,
--- NOTE | 2021-05-26 08:32 | ED.GENADULT ---
HPI - General Adult General Chief complaint: Abdominal Pain Stated complaint: Right Side Pain Time Seen by Provider: 05/26/21 08:26 Source: patient and RN notes reviewed Mode of arrival: ambulatory Limitations: no limitations History of Present Illness HPI narrative: 61-year-old female with history of COPD, hypertension, smoking presents with concern for right chest wall pain. Reports pain in the right upper back that radiates under the axilla and to the front of the chest. Reports recent exacerbated cough. Reports chills. She denies body aches, fever. She denies shortness of breath. Reports she recently had her Covid booster and flu vaccine. She denies abdominal pain, vomiting, diarrhea, dysuria, frequency. Reports she has been using her albuterol inhaler 3-4 times daily. MD complaint: Chest wall pain Related Data Home Medications Medication Instructions Recorded Confirmed apple cider vinegar 2 cap PO TID 09/01/19 05/26/21 melatonin 10 mg PO HS 09/01/19 05/26/21 multivitamin 1 tablet PO DAILY 09/01/19 05/26/21 aspirin 81 mg PO DAILY 09/17/20 05/26/21 docusate sodium [Colace] 100 mg PO TID 09/17/20 05/26/21 simethicone [Gas-X Extra Strength] 125 mg PO TID 09/17/20 05/26/21 Allergies Allergy/AdvReac Type Severity Reaction Status Date / Time No Known Allergies Allergy Verified 05/26/21 08:29 Review of Systems Review of Systems: CONSTITUTIONAL: Denies malaise, sweats, or fever. Reports chills EYES: Denies visual changes, redness, or discharge. ENT: Denies rhinorrhea, congestion, sinus pain, otalgia and sore throat. CARDIOVASCULAR: Denies chest pain, palpitations, or edema. RESPIRATORY: Reports cough, chest wall pain. Denies dyspnea. GASTROINTESTINAL: Denies abdominal pain, nausea, vomiting, diarrhea SKIN: Denies rash or itching. MUSCULOSKELETAL: Denies myalgia. NEUROLOGIC: Denies headache. All systems reviewed & are unremarkable except as noted in HPI and below PMFSH Past Medical History Medical History Arthritis Cervical disc disease Chronic pain of right thumb Colon polyp COPD (chronic obstructive pulmonary disease) Degenerative disc disease, lumbar Depression Fibromyalgia Hyperlipidemia Hypertension Irritable bowel syndrome with constipation Kidney stones Lateral meniscal tear Left shoulder pain Medial meniscus tear Medial meniscus tear Osteoporosis Restless leg syndrome Type 2 diabetes mellitus without complications Last A1C provided 02/02/20: 5 Surgical History Surgical History H/O arthroscopic knee surgery (~2019) H/O hand surgery Bone removed from left hand. 11/2020. History of carpal tunnel release RT-2011 LT-1989 History of partial hysterectomy (~1985) placenta previa History of shoulder surgery (~2007) Right shoulder bone spurs History of tubal ligation (~1984) Family History Family History Grandparent Hypertension Family history of Parkinson's disease Mother Hypertension Other Family history of arthritis Social History Social History Smoking packs per day: 0.5 Smoking cigarettes per day: 10.0 Years smoked: 30 Smoking pack-years: 15.00 Smoking status: Current every day smoker Tobacco type: cigarettes Additional smoking assessment comments: WORKING ON QUITTING NOW Alcohol intake: former Substance use: current Substance use type: other Other substance usage details: 100mg thc gummies Last use: 11/05/20 Gender identity (if verbalized by the patient): Female Spiritual care concerns: No Comments At time of signature, agree with nursing past medical, surgical, social and family history. There is no relevant family history pertinent to the presenting complaint Exam Narrative: GENERAL: Well-appearing, well-nourished, and in no acute d
--- NOTE | 2021-05-26 08:40 | ECG_ITS ---
Measurements Intervals [place] Rate: 97 P: 65 [place]: 154 QRS: -6 QRSD: 86 T: 56 QT: 363 QTc: 461 Interpretive Statements SINUS RHYTHM INFERIOR INFARCT, AGE INDETERMINATE BASELINE ARTIFACT- I, II, III ABNORMAL ECG Electronically Signed On 05-27-2021 8:42:28 ARCHITECTURAL INSPECTOR by David Belcher D.O.
== END 2021-05-26 08:59 | disposition home or self-care (01) ==
PROVIDERS: Emergency Provider Nurse Practitioner; PCP Nurse Practitioner
DX: R07.89 Other chest pain (principal); J44.1 Chronic obstructive pulmonary disease with (acute) exacerbation; F17.210 Nicotine dependence, cigarettes, uncomplicated; M19.90 Unspecified osteoarthritis, unspecified site; M51.06 Intervertebral disc disorders with myelopathy, lumbar region; M79.7 Fibromyalgia; E78.5 Hyperlipidemia, unspecified; I10 Essential (primary) hypertension; M81.0 Age-related osteoporosis without current pathological fracture; G25.81 Restless legs syndrome; E11.9 Type 2 diabetes mellitus without complications
CPT/HCPCS: 71046; 93005; 99213; G0463

== ENCOUNTER 2021-07-01 12:42 | Emergency (ER) | payer MEDICARE, MEDICAID, SELFPAY ==
--- NOTE | ~2021-07-01 | XR_ITS ---
XR chest 2V DATE: 07/01/2021 13:53 INDICATION: Cough for 3 weeks TECHNIQUE: PA and lateral views COMPARISON: 05/26/2021 2 view chest FINDINGS: Normal heart size. No hilar or mediastinal enlargement. No pulmonary infiltrate or consol idation, pulmonary vascular congestion or pleural effusion or pneumothorax. There is mild levoscolio sis of the upper thoracic spine. IMPRESSION: No active cardiopulmonary disease Reviewed, dictated and finalized at location B. THEATER EXPERIENCE EXPERT
[2021-07-01 12:50] VITALS: BP 119/80; PULSE 110; RESP 18; TEMP 35.6; O2SAT 99
--- NOTE | 2021-07-01 13:31 | ED.URI ---
HPI - URI/Sore Throat General Chief Complaint: Upper Respiratory Infection Stated Complaint: Chest Congestion/Cough Time Seen by Provider: 07/01/21 13:31 Source: patient Mode of arrival: ambulatory Limitations: no limitations History of Present Illness HPI Narrative: Rupal Hernandez is a 61 yo female with a PMH of copd, anxiety, high cholesterol, bipolar disorder, type 2 diabetes , osteoporosis , [facility] chronic cough and fungal infection of her mouth. She has been treated for this last month and has continued to have a cough and was put back on Advair with recurrence of nystatin. She states that her cough is persistent and has rib pain Related Data Home Medications Medication Instructions Recorded Confirmed melatonin 10 mg PO HS 09/01/19 07/01/21 multivitamin 1 tablet PO DAILY 09/01/19 07/01/21 aspirin 81 mg PO DAILY 09/17/20 07/01/21 simethicone [Gas-X Extra Strength] 125 mg PO TID 09/17/20 07/01/21 tiotropium bromide [Spiriva 1.25 mcg INHALATION DIRECTED 07/01/21 07/01/21 Respimat] Allergies Allergy/AdvReac Type Severity Reaction Status Date / Time No Known Allergies Allergy Verified 06/17/21 11:11 Review of Systems Review of Systems: CONSTITUTIONAL: Denies fever, chills, sweats. EYES: Denies visual changes, redness, discharge. ENT: Denies rhinorrhea, congestion, sore throat, otalgia. CARDIOVASCULAR: Denies chest pain, palpitations, edema. RESPIRATORY: Denies dyspnea, wheezing, has cough; right rib pain GASTROINTESTINAL: Denies abdominal pain, nausea, vomiting, diarrhea. GENITOURINARY: Denies dysuria, hematuria, abnormal discharge SKIN: Denies rash or itching. NEUROLOGIC: Denies numbness, or focal weakness. PSYCHIATRIC: Denies anxiety or depression. [facility] Past Medical History Medical History Arthritis Cervical disc disease Chronic pain of right thumb Colon polyp COPD (chronic obstructive pulmonary disease) Degenerative disc disease, lumbar Depression Fibromyalgia Hemochromatosis Hyperlipidemia Hypertension Irritable bowel syndrome with constipation Kidney stones Lateral meniscal tear Left shoulder pain Medial meniscus tear Osteoporosis Restless leg syndrome Type 2 diabetes mellitus without complications Last A1C provided 02/02/20: 5 Surgical History Surgical History H/O arthroscopic knee surgery (~2019) H/O hand surgery Bone removed from left hand. 11/2020. History of carpal tunnel release RT-2011-1989 History of partial hysterectomy (~1985) placenta previa History of shoulder surgery (~2007) Right shoulder bone spurs History of tubal ligation (~1984) Family History Family History Grandparent Hypertension Family history of Parkinson's disease Mother Hypertension Other Family history of arthritis Social History Social History Smoking packs per day: 0.5 Smoking cigarettes per day: 10.0 Years smoked: 30 Smoking pack-years: 15.00 Smoking status: Current every day smoker Tobacco type: cigarettes Additional smoking assessment comments: WORKING ON QUITTING NOW Alcohol intake: former Substance use: current Substance use type: other Other substance usage details: 100mg thc gummies Last use: 11/05/20 Gender identity (if verbalized by the patient): Female Spiritual care concerns: No Comments At time of signature, I agree with nursing past medical, surgical, social and family history. There is no relevant family history pertinent to the presenting complaint. Exam Narrative: GENERAL: This is a well-nourished, well-developed patient, in mild distress. HEAD: normocephalic, atraumatic. EYES: . Sclera clear/white. Vision is grossly intact. EARS: External ears normal, auditory canals clear and without dr
== END 2021-07-01 14:53 | disposition home or self-care (01) ==
PROVIDERS: Emergency Provider Nurse Practitioner; PCP Nurse Practitioner
DX: R05.9 Cough, unspecified (principal); B37.0 Candidal stomatitis; F17.210 Nicotine dependence, cigarettes, uncomplicated; M19.90 Unspecified osteoarthritis, unspecified site; M50.30 Other cervical disc degeneration, unspecified cervical region; J44.9 Chronic obstructive pulmonary disease, unspecified; M79.7 Fibromyalgia; E78.5 Hyperlipidemia, unspecified; I10 Essential (primary) hypertension; M81.0 Age-related osteoporosis without current pathological fracture; G25.81 Restless legs syndrome; E11.9 Type 2 diabetes mellitus without complications; Z90.711 Acquired absence of uterus with remaining cervical stump
CPT/HCPCS: 71046; 99213; G0463

== ENCOUNTER 2021-09-03 14:16 | Emergency (ER) | payer MEDICARE, MEDICAID, SELFPAY ==
--- NOTE | ~2021-09-03 | XR_ITS ---
EXAMINATION: XR hand LT min 3V INDICATION: Left hand pain TECHNIQUE: Three views of the left hand are obtained. COMPARISON: 08/15/2020 FINDINGS: No fracture is identified. There has been interval partial resection of the trapezium. Ther e is mild osteoarthritis of the triscaphe joint. The soft tissues are unremarkable. IMPRESSION: 1. No acute osseous abnormality. Reviewed, dictated and finalized at location F. OY FILLER
--- NOTE | ~2021-09-03 | XR_ITS ---
XR ankle LT min 3V DATE: 09/03/2021 15:21 INDICATION: Fall, left ankle generalized pain TECHNIQUE: 4 views COMPARISON: None FINDINGS: There are cortical avulsion fractures of the dorsal aspect of anterior process of the talus and the dorsal aspect of the navicular bone with probable mild associated overlying soft tissue swel ling. Prominent plantar and posterior calcaneal enthesopathy. No fracture or dislocation of the ankle or disruption of the ankle mortise. No periosteal reaction or bone destruction. IMPRESSION: Dorsal cortical avulsion fractures of the anterior process of talus and the navicular bon e, with suggestion of mild overlying soft tissue swelling, suggesting is a recent Reviewed, dictated and finalized at location A. OYMENT COACH IMPRESSION: Dorsal cortical avulsion fractures of the anterior process of talus and the navicular bone, with suggestion of mild overlying soft tissue swelling , suggesting is a recent
--- NOTE | ~2021-09-03 | XR_ITS ---
EXAMINATION: NASAL BONES-3+VIEWS DATE: 09/03/2021 15:22 INDICATION: Nasal pain and swelling post fall TECHNIQUE: AP and left and right lateral views of the nasal bones were obtained. COMPARISON: None. FINDINGS: Nasal bone fracture 6 mm from the tip of the nasal bone with approximately 1 mm depression of the dis pinky fragment. No other fractures identified. The brennan of the orbits and paranasal sinuses appear int act. Mandible and maxilla are edentulous with alveolar ridge resorption. Nasal septum is midline. No mucosal air-fluid levels appreciated within the paranasal sinuses. Mild soft tissue swelling over th e bridge of the nose. IMPRESSION: 1. 1 mm depression of a fracture across the distal tip of the nasal bone. Reviewed, dictated and finalized at location A. TRONICS MECHANIC APPRENTICE
--- NOTE | ~2021-09-03 | XR_ITS ---
XR foot LT min 3V DATE: 09/03/2021 15:22 INDICATION: Fall. Generalized left ankle and foot pain. TECHNIQUE: 4 views COMPARISON: None FINDINGS: There are dorsal cortical avulsion fractures of the anterior process of the talus and navic ular bone. Mild plantar and posterior calcaneal enthesopathy, distal Achilles tendon calcification. No fracture, dislocation, periosteal reaction or bone destruction. IMPRESSION: Dorsal cortical avulsion fractures of the anterior process of the talus and the navicular bone Plantar and posterior calcaneal enthesopathy, distal Achilles tendon calcification Reviewed, dictated and finalized at location A. ICAL ADVISOR IMPRESSION: Dorsal cortical avulsion fractures of the anterior process of the t alus and the navicular bone Plantar and posterior calcaneal enthesopathy, distal Achilles tendon calcificat ion
--- NOTE | 2021-09-03 14:22 | ED.LOWEXIN ---
HPI - Extremity Injury (Lower) General Chief Complaint: Extremity Injury, Lower Stated Complaint: injury Time Seen by Provider: 09/03/21 14:20 Source: patient and RN notes reviewed History of Present Illness HPI Narrative: Patient is 61-year-old female presents the urgent care with complaints of left foot/ankle injury, facial injury, and left hand injury. Patient states that she was looking in a house walking on a wet track deck that caught her foot and she face planted on the deck. Patient states that it happened just prior to arrival and she has not done anything for her pain. Patient denies of any loss of consciousness, nausea or vomiting. Patient states that she does have a slight frontal headache from the fall. States that she had a bloody nose initially. No other acute complaints. No acute distress noted. Patient read the plan of care. Some parts of this dictation were generated by voice recognition software and may contain typographical and/or grammatical inaccuracies. Related Data Home Medications Medication Instructions Recorded Confirmed melatonin 10 mg PO HS 09/01/19 09/03/21 multivitamin 1 tablet PO DAILY 09/01/19 09/03/21 aspirin 81 mg PO DAILY 09/17/20 09/03/21 simethicone [Gas-X Extra Strength] 125 mg PO TID 09/17/20 09/03/21 tiotropium bromide [Spiriva 1.25 mcg INHALATION DIRECTED 07/01/21 09/03/21 Respimat] Allergies Allergy/AdvReac Type Severity Reaction Status Date / Time No Known Allergies Allergy Verified 09/03/21 14:47 Review of Systems Review of Systems: CONSTITUTIONAL: Denies fever, chills, or sweats. EYES: Denies visual changes, redness, or discharge. ENT: Denies rhinorrhea, congestion, sore throat, or otalgia. Reports of nasal pain, swelling and bruising CARDIOVASCULAR: Denies chest pain, palpitations, or edema. RESPIRATORY: Denies cough or dyspnea. GASTROINTESTINAL: Denies abdominal pain, nausea, vomiting, or diarrhea. GENITOURINARY: Denies dysuria or hematuria. SKIN: Denies rash or itching. MUSCULOSKELETAL: Reports of left hand/wrist pain and left foot/ankle pain and swelling NEUROLOGIC: Denies headache, numbness, or weakness. All other systems reviewed are negative, except as documented in HPI. [facility] Past Medical History Medical History Arthritis Cervical disc disease Chronic pain of right thumb Colon polyp COPD (chronic obstructive pulmonary disease) Degenerative disc disease, lumbar Depression Fibromyalgia Hemochromatosis Hyperlipidemia Hypertension Irritable bowel syndrome with constipation Kidney stones Lateral meniscal tear Left shoulder pain Medial meniscus tear Osteoporosis Restless leg syndrome Type 2 diabetes mellitus without complications Last A1C provided 02/02/20: 5 Surgical History Surgical History H/O arthroscopic knee surgery (~2019) H/O hand surgery Bone removed from left hand. 11/2020. History of carpal tunnel release RT-2011 LT-1989 History of partial hysterectomy (~1985) placenta previa History of shoulder surgery (~2007) Right shoulder bone spurs History of tubal ligation (~1984) Family History Family History Grandparent Hypertension Family history of Parkinson's disease Mother Hypertension Other Family history of arthritis Social History Social History Smoking packs per day: 0.5 Smoking cigarettes per day: 10.0 Years smoked: 30 Smoking pack-years: 15.00 Smoking status: Current every day smoker Tobacco type: cigarettes Additional smoking assessment comments: WORKING ON QUITTING NOW Alcohol intake: former Substance use: current Substance use type: other Other substance usage details: 100mg thc gummies Last use: 11/05/20 Gender identity (if verbalized by the patient): Female Spiritual ca
[2021-09-03 14:32] VITALS: BP 129/80; PULSE 118; RESP 20; TEMP 36.6; O2SAT 100
== END 2021-09-03 16:20 | disposition home or self-care (01) ==
PROVIDERS: Emergency Provider Nurse Practitioner Family; PCP Nurse Practitioner
DX: S02.2XXA Fracture of nasal bones, initial encounter for closed fracture (principal); S92.155A Nondisplaced avulsion fracture (chip fracture) of left talus, initial encounter for closed fracture; S92.255A Nondisplaced fracture of navicular [scaphoid] of left foot, initial encounter for closed fracture; W19.XXXA Unspecified fall, initial encounter; M19.90 Unspecified osteoarthritis, unspecified site; J44.9 Chronic obstructive pulmonary disease, unspecified; M51.36 Other intervertebral disc degeneration, lumbar region; M79.7 Fibromyalgia; E78.5 Hyperlipidemia, unspecified; I10 Essential (primary) hypertension; M81.0 Age-related osteoporosis without current pathological fracture; G25.81 Restless legs syndrome; E11.9 Type 2 diabetes mellitus without complications; Z90.711 Acquired absence of uterus with remaining cervical stump; Z79.82 Long term (current) use of aspirin; Z79.84 Long term (current) use of oral hypoglycemic drugs
CPT/HCPCS: 29515; 70160; 73130; 73610; 73630; 99214; G0463

== ENCOUNTER 2021-12-24 09:40 | Outpatient (CLI) | payer MEDICARE, MEDICAID, SELFPAY ==
--- NOTE | ~2021-12-24 | XR_ITS ---
XR hip BI 2V w AP pelvis DATE: 12/24/2021 10:06 INDICATION: Low back pain. Hip pain. TECHNIQUE: AP pelvis. AP and lateral views of each hip. COMPARISON: None FINDINGS: No pelvic fracture or bone destruction. The pubic symphysis and sacroiliac joints are intac t. Hip joint spaces are symmetric and appear well preserved. No fracture or dislocation, avascular necrosis or bone destruction of either hip is detected. IMPRESSION: No significant abnormality Reviewed, dictated and finalized at location A. IMPRESSION: No significant abnormality
== END 2021-12-24 09:41 | disposition home or self-care (01) ==
PROVIDERS: PCP Internal Medicine; Visit Provider Internal Medicine
DX: M54.50 Low back pain, unspecified (principal); M25.551 Pain in right hip; M25.552 Pain in left hip
CPT/HCPCS: 73521

== ENCOUNTER 2022-08-19 09:38 | Outpatient (CLI) | payer MEDICARE, MEDICAID, SELFPAY ==
--- NOTE | ~2022-08-19 | CT_ITS ---
EXAMINATION: CT lung screening DATE: 08/19/2022 10:05 INDICATION: Personal history of nicotine dependence, prior smoker with 40 pack year history TECHNIQUE: Computed tomography (CT) of the chest was performed without intravenous contrast. The dose -length product (DLP) was 102.30 mGy-cm. 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 COMPARISON: 06/25/2020 FINDINGS: There is mild emphysema. There are multiple stable 1 to 2 mm nodules of the lungs. The lung s are free of acute opacities. No pleural effusion or pneumothorax. There is an area of chronic atele ctasis versus scarring of the right middle lobe. No pathologically enlarged thoracic lymph nodes are identified. The heart size is normal. Calcified coronary artery atherosclerosis is noted. There is mi ld thoracic spondylosis. IMPRESSION: 1. Lung-RADS category 2: Benign appearance or behavior. Continue annual screening with noncontrast lo w-dose chest CT in 12 months. Reviewed, dictated and finalized at location L. E JOBBER IMPRESSION: 1. Lung-RADS category 2: Benign appearance or behavior. Continue annual screeni ng with noncontrast low-dose chest CT in 12 months.
== END 2022-08-19 09:39 | disposition home or self-care (01) ==
PROVIDERS: PCP Internal Medicine; Visit Provider Nurse Practitioner
DX: Z12.2 Encounter for screening for malignant neoplasm of respiratory organs (principal); Z87.891 Personal history of nicotine dependence
CPT/HCPCS: 71271

== ENCOUNTER 2023-08-31 16:30 | Emergency (ER) | payer MEDICARE, MEDICAID, SELFPAY ==
[2023-08-31 16:34] VITALS: BP 119/94; PULSE 121; RESP 18; TEMP 36.4; O2SAT 99
== END 2023-08-31 18:00 | disposition left against medical advice (07) ==
LOC: ANHED 18:16
DX: M79.7 Fibromyalgia (principal)
CPT/HCPCS: 99199